=== PATIENT | female | born 1970 | race Caucasian/White ===

== ENCOUNTER → 2019-10-23 10:50 | Outpatient (CLI) | payer OTHER, SELFPAY ==
--- NOTE | ~2019-10-23 | MM_ITS ---
EXAMINATION: MM screening [facility] BI w duyen HISTORY: Screening mammogram TECHNIQUE: Craniocaudal and mediolateral oblique 3-D tomosynthesis images were obtained and synthetic 2-D images were generated. CAD analysis was submitted and interpreted. COMPARISON: 06/13/2018, 10/26/2016 BREAST PARENCHYMAL COMPOSITION: There are scattered areas of fibroglandular density. FINDINGS: There is no evidence of suspicious mass, calcification, or architectural distortion to sugg est malignancy in either breast. There has been no suspicious interval change. IMPRESSION: 1. No mammographic evidence of malignancy. 2. Recommend routine screening mammography in one year. BI-RADS Category 1: Negative Reviewed, dictated and finalized at location A. LATOR CONSTRUCTOR
== END ==
PROVIDERS: PCP Internal Medicine; Visit Provider Internal Medicine
DX: Z12.31 Encounter for screening mammogram for malignant neoplasm of breast (principal)
CPT/HCPCS: 77063; 77067

== ENCOUNTER 2020-10-01 01:52 | Outpatient (CLI) | payer OTHER, SELFPAY ==
[2020-10-01 18:12] LABS: SARS-CoV-2 RNA PCR Negative
== END 2020-10-01 01:53 | disposition home or self-care (01) ==
LOC: ANHCOVIDDT 01:52
PROVIDERS: PCP Internal Medicine; Visit Provider Internal Medicine Gastroenterology
DX: Z01.812 Encounter for preprocedural laboratory examination (principal); Z20.822 Contact with and (suspected) exposure to COVID-19
CPT/HCPCS: C9803; U0003; U0005

== ENCOUNTER 2020-10-04 01:04 | Day surgery (SDC) | payer OTHER, SELFPAY ==
[2020-09-20 14:28] VITALS: BMI 32.6
--- NOTE | 2020-10-02 13:31 | WPDANESEPPF ---
Anes - Initial Pre Proc Eval Procedure: Operation Date: 10/04/20 09:00 Proposed Procedures p Esophagogastroduodenoscopy - Reed Gregorio MD Date/Time: 10/02/20 13:31 Surgeon: Reed Gregorio MD Pre Op Diagnosis: Dysphagia Patient Data Age: 49 Gender: F Height: 1.65 m Weight: 89 kg Allergies Allergy/AdvReac Type Severity Reaction Status Date / Time No Known Allergies Allergy Mild Verified 10/04/20 08:01 NO KNOWN DRUG ALLERGIES Allergy Y Uncoded 02/27/03 15:34 (Class Allergy) Home Medications Medication Instructions Recorded Confirmed Type escitalopram oxalate 10 mg PO DAILY 09/20/20 09/20/20 History phentermine 37.5 mg PO DAILY 09/20/20 09/20/20 History rosuvastatin 40 mg PO DAILY 09/20/20 09/20/20 History Patient hx anesthesia problems: none Family hx anesthesia problems: none [facility] Past Medical History Medical History (Updated 10/04/20 @ 08:40 by Reed Gregorio MD) Depression Hyperlipidemia BRITTANI (obstructive sleep apnea) CPAP Social History Social History Years smoked: 30 Smoking status: Former smoker Tobacco type: cigarettes Alcohol intake: never Substance use: never Substance use type: does not use Living arrangements: with family Spiritual care concerns: No Anes - Eval Final PreProcedure Day of Procedure 10/02/20 13:31 Patient weight: obese Heart: regular rate and rhythm Lungs: clear to auscultation and normal air movement Airway: Mallampati scale class III Neurological: alert and oriented Last oral intake: >/= 8 hours ASA classification: III Emergent: no Anesthetic plan: proceed Anesthesia type and monitoring: general GIVS and standard monitoring Informed Consent: The patient's anesthetic plan and its attendant risks and benefits were discussed with the patient/family/POA. Questions were solicited and answers provided to the satisfaction of the patient/family/POA.
[2020-10-04 08:02] VITALS: BP 139/72; PULSE 64; RESP 16; TEMP 36.7; O2SAT 97
[2020-10-04] MEDS: LACTATED RINGERS 1,000 ML 150 ML IV CONT (08:17)
--- NOTE | 2020-10-04 08:38 | P.CONGI_ITS ---
Assessment and Plan Assessment and plan (1) Dysphagia: Code(s): R13.10 - Dysphagia, unspecified Status: Acute Assessment and Plan: Patient reports difficulty swallowing. Primarily solid foods and acidic food s. This will be evaluated by endoscopy. Patient may benefit from a trial of anti-reflux measures and proton pump inhibitor. This will be assessed at time of endoscopy. (2) Throat pain: Code(s): R07.0 - Pain in throat Status: Acute Assessment and Plan: Patient complains of burning throat discomfort on swallowing acidic and spicy foods. This is somewhat suspicious for acid reflux. Cannot exclude an infection or other etiology. Plan is for EGD to assess more thoroughly. GI Consult Note Consult date/time: 10/04/20 08:38 HPI: Laureen Simmons is a 49 year old female presents for evaluation of dysphagia. Patient reports over the last 2 years that she will have throat burning when eating spicy or acidic foods. She also feels tightness in slow passage to more solid foods through this area. She reports only infrequent acid regurgitation. Patient denies any bleeding or weight loss. She is referred today for EGD. Patient reports she has tried Tums and antacids with no improvement. She has tried no other medications. Her family history is noncontributory. Patient denies any weight loss. Review of Systems Review of Systems: All systems reviewed & are unremarkable except as noted in HPI and below PMFSH Past Medical History Medical History (Updated 10/04/20 @ 08:40 by Reed Gregorio MD) Depression Hyperlipidemia BRITTANI (obstructive sleep apnea) CPAP Social History Social History Years smoked: 30 Smoking status: Former smoker Tobacco type: cigarettes Alcohol intake: never Substance use: never Substance use type: does not use Living arrangements: with family Spiritual care concerns: No Meds Home Medications and Allergies Home Medications Medication Instructions Recorded Confirmed Type escitalopram oxalate 10 mg PO DAILY 09/20/20 09/20/20 History phentermine 37.5 mg PO DAILY 09/20/20 09/20/20 History rosuvastatin 40 mg PO DAILY 09/20/20 09/20/20 History Allergies Allergy/AdvReac Type Severity Reaction Status Date / Time No Known Allergies Allergy Mild Verified 10/04/20 08:01 NO KNOWN DRUG ALLERGIES Allergy Y Uncoded 02/27/03 15:34 (Class Allergy) Vital Signs Vital Signs - 24 hr 10/04/20 08:02 Temperature 98.0 F Pulse Rate 64 Respiratory Rate 16 Blood Pressure 139/72 Pulse Oximetry 97 Exam Narrative: Exam Narrative: Physical exam reveals patient to be alert. Vital signs stable. HEENT exam is unremarkable. Lungs are clear to auscultation and percussion. Heart is without murmur or extra sounds. Abdominal exam bowel sounds are present soft nontender with no hepatosplenomegaly. Rectal exam is deferred.
[2020-10-04] MEDS: BENZOCAINE (*SP) 60 ML SPRAY CAN (HURRICAINE) 1 SPRAY MUCOUS MEM (09:20)
[2020-10-04 09:30] VITALS: BP 122/73; PULSE 63; RESP 22; O2SAT 96
[2020-10-04 09:40] VITALS: BP 123/70; PULSE 62; RESP 17; O2SAT 97
[2020-10-04 09:50] VITALS: BP 131/71; PULSE 70; RESP 20; O2SAT 100
== END 2020-10-04 10:00 | disposition home or self-care (01) ==
PROVIDERS: PCP Internal Medicine; Visit Provider Internal Medicine Gastroenterology
PROC: 0DJ08ZZ Inspection of Upper Intestinal Tract, Via Natural or Artificial Opening Endoscopic (ICD-10-PCS; CPT 43235; principal; 2020-10-04 09:00)
DX: R13.10 Dysphagia, unspecified (principal); G47.33 Obstructive sleep apnea (adult) (pediatric); F32.9 Major depressive disorder, single episode, unspecified; E78.5 Hyperlipidemia, unspecified; E66.9 Obesity, unspecified; Z68.33 Body mass index [BMI] 33.0-33.9, adult; R07.0 Pain in throat
CPT/HCPCS: 43450; C9803; J2704; J7120; U0003; U0005

== ENCOUNTER → 2021-04-10 15:59 | Outpatient (CLI) | payer OTHER, SELFPAY ==
--- NOTE | ~2021-04-10 | MM_ITS ---
EXAMINATION: MM screening [facility] BI w duyen HISTORY: Screening TECHNIQUE: Craniocaudal and mediolateral oblique 3-D tomosynthesis images were obtained and synthetic 2-D images were generated. CAD analysis was submitted and interpreted. COMPARISON: Comparison to multiple prior studies sequentially, with oldest reviewed study dated 10/26. BREAST PARENCHYMAL COMPOSITION: There are scattered areas of fibroglandular density. FINDINGS: There are stable scattered benign-appearing breast calcifications. There is no evidence of suspicious mass, calcification, or architectural distortion to suggest malignancy in either breast. T here has been no suspicious interval change. IMPRESSION: 1. No mammographic evidence of malignancy. 2. Recommend routine screening mammography in one year. BI-RADS Category 1: Negative Reviewed, dictated and finalized at location A.
== END ==
PROVIDERS: PCP Internal Medicine; Visit Provider Internal Medicine
DX: Z12.31 Encounter for screening mammogram for malignant neoplasm of breast (principal)
CPT/HCPCS: 77063; 77067

== ENCOUNTER 2021-09-02 07:36 | Outpatient (CLI) | payer OTHER, SELFPAY ==
--- NOTE | 2021-09-10 18:08 | WPDHOMESLEEP ---
Sleep Study - Home Unattended Date of Study: 09/02/21 Ordering Provider: Pau Simental, Interpreting Provider: Trupti Shah MD Home Sleep Study Type: Apnea Link Air Height: 1.65 m Weight: 95.254 kg Body Mass Index: 34.9 Neck Circumference (inches): 16 [place]: 11 Reason for Sleep Study Loud snoring, falling asleep in the day Sleep History Laureen Simmons is a 50-year-old female with loud snoring and poor quality sleep. She was diagnosed with sleep apnea. She has morning headaches. She has difficulty staying asleep throughout the night and she wakes throughout the night. She frequently awakens from sleep feeling short of breath and awakens at night with heartburn, belching or coughing. She constantly snores loudly. She frequently has trouble sleeping with a cold. She frequently wakes up gasping for breath at night. She occasionally has breathing problems at night observed by others. She does not sweat excessively at night. She rarely notices her heart pounding or beating irregularly at night. She frequently falls asleep during the day frequently falls asleep involuntarily. she does not fall asleep while driving. She does not have loss of muscle tone with strong emotion. She occasionally has daytime difficulties due to excessive sleepiness. She does not feel paralyzed on waking or falling asleep. She frequently has vivid dreamlike scenes upon awakening or falling asleep and frequently feels afraid to go to sleep. She does not have nightmares. She occasionally remembers her dreams. She rarely has racing thoughts. She frequently feels sad or depressed. She occasionally feels anxious. She occasionally has muscular tension. She rarely notices parts of her body jerking and she rarely kicks at night. She really has crawling and aching feelings in her legs and rarely has any kind of leg pain at night. She does not have morning jaw pain. She rarely grinds her teeth during sleep. She really is bothered by pain during the day and rarely awakened by pain at night. She frequently wakes up feeling stiff in the morning occasionally wakes up with sore achy muscles and frequently wakes up with pain in the neck and spine. She has palpitations, fatigue, memory problems and concentration difficulties. Normal bedtime is Twelve midnight falling asleep quickly waking up several times at night. During this time she will drink water, relax and try to get back to sleep. She wakes the morning at 7:30 a.m.. Her weekend schedule is similar. She estimates getting 4-5 hours of sleep at night. She does not take naps. A short nap is not refreshing. She is drowsy for an hour after waking. She feels better in the afternoon compared to the morning. Habits: Quit tobacco 6 years ago. Caffeine 2 cups of coffee a day. No alcohol or recreational drugs. [facility] Past Medical History Medical History (Updated 09/10/21 @ 18:56 by Trupti Shah MD) Depression Hyperlipidemia Obstructive sleep apnea Social History Social History Years smoked: 30 Smoking status: Former smoker Tobacco type: cigarettes Alcohol intake: never Substance use: never Substance use type: does not use Spiritual care concerns: No Medications Home Medications Medication Instructions Recorded Confirmed Type escitalopram oxalate 10 mg PO DAILY 09/20/20 09/20/20 History phentermine 37.5 mg PO DAILY 09/20/20 09/20/20 History rosuvastatin 40 mg PO DAILY 09/20/20 09/20/20 History Sleep Procedure This test was performed using 4 channel monitoring including respiratory effort channel, snoring channel, heart rate channel, and oxygen saturation channel. This study was scored using CMS guidelines. Sleep Architecture Not applicable for home sleep test. Respiratory Analysis The recording duration is 8 hours 19 minutes. Monitoring duration is 8 hours and 7 minutes. Oxygen saturation evaluation 8 hours 9 minutes. The apnea-hypopnea index is 31.1.
[2021-09-10 19:09] VITALS: BMI 34.9
== END 2021-09-03 12:11 | disposition home or self-care (01) ==
LOC: ANHCSM 07:37
PROVIDERS: PCP Internal Medicine; Visit Provider Internal Medicine Endocrinology, Diabetes & Metabolism
DX: G47.33 Obstructive sleep apnea (adult) (pediatric) (principal); Z68.34 Body mass index [BMI] 34.0-34.9, adult
CPT/HCPCS: 95806

== ENCOUNTER → 2021-09-13 10:29 | Outpatient (CLI) | payer OTHER, SELFPAY ==
[2021-09-13 22:40] LABS: SARS-CoV-2 RNA PCR Negative
== END ==
PROVIDERS: PCP Internal Medicine; Visit Provider Internal Medicine
DX: R68.89 Other general symptoms and signs (principal); Z20.822 Contact with and (suspected) exposure to COVID-19
CPT/HCPCS: C9803; U0003; U0005

== ENCOUNTER 2021-11-04 13:50 | Outpatient (CLI) | payer OTHER, SELFPAY ==
--- NOTE | ~2021-11-04 | US_ITS ---
EXAMINATION: US thyroid EXAM DATE: 11/04/2021 14:26 INDICATION: Nontoxic Goiter TECHNIQUE: Multiple grayscale and Doppler images of the thyroid were obtained (by a technologist who performed the scan) and subsequently reviewed. Individual nodules and recommendations may be reporte d in accordance with TI-RADS system as designated by the 2017 ACR White Paper TI-RADS committee. The re is no prior study for comparison. FINDINGS: The right thyroid lobe measures 3.7 x 1.5 x 1.3 cm, the left measuring 3.9 x 1.6 x 1.7 cm. Relatively homogeneous thyroid echogenicity, and dimensions are within normal size limits. There is a right thyroid lobe nodule measuring 1.0 x 0.5 x 1.0 cm, solid (2 points), hypoechoic (2 po ints), wider than tall, smooth well defined margin, without echogenic foci, category TR4 for this nod ule. There is a smaller left thyroid lobe TR 4 nodule up to 7 mm, not likely clinically significant. IMPRESSION: Right and left thyroid lobe nodules; one-year follow-up can be obtained. Reviewed, dictated and finalized at location B. MENT ANALYST IMPRESSION: Right and left thyroid lobe nodules; one-year follow-up can be obta ined.
== END 2021-11-04 13:51 | disposition home or self-care (01) ==
PROVIDERS: PCP Internal Medicine; Visit Provider Internal Medicine Endocrinology, Diabetes & Metabolism
DX: E04.9 Nontoxic goiter, unspecified (principal); E04.2 Nontoxic multinodular goiter
CPT/HCPCS: 76536

== ENCOUNTER → 2022-01-09 13:25 | Outpatient (CLI) | payer OTHER, SELFPAY ==
--- NOTE | ~2022-01-09 | DEXA_ITS ---
Bone Density Report Name: KELVIN JACKSON Age: 51 Sex: Female Ethnicity: White Date of : 1970 Indication: postmenopausal; screening for osteoporosis; Referring Provider: Jillian, Deborah Study: Bone densitometry was performed. Exam Date: January 09, 2022 Accession number: [id number] Bone Density: Region BMD T-score Z-score Classification AP Spine (L1-L4) 1.012 -0.3 0.6 Normal Femoral Neck (Left) 0.708 -1.3 -0.4 Osteopenia Total Hip (Left) 0.955 0.1 0.7 Normal Femoral Neck (Right) 0.770 -0.7 0.2 Normal Total Hip (Right) 0.902 -0.3 0.2 Normal Total Hip Mean 0.929 -0.1 0.5 Normal World Health Organization criteria for BMD impression classify patients as: Normal (T-score at or above -1.0), Osteopenia (T-score between -1.0 and -2.5), or Osteoporosis (T-score at or below -2.5). 10-year Fracture Risk(1): Major Osteoporotic Fracture 4.8% Hip Fracture 0.3% Reported Risk Factors: [place] (), Neck BMD=0.708, BMI=33.9 (1) FRAX(R) Version 3.08. Fracture probability calculated for an untreated patient. Fracture probability may be lower if the patient has received treatment. Clinical Information Provided by Patient: Has used the following medications: Vitamin D, Calcium Patient maximum height was 64.4 Menopause Age: 41 Drinks caffeinated beverages Onset of menses at age 14 Number of children 2 Impression: The patient has low bone mass, based on the Left Femoral Neck T-score. The patient has an estimated ten-year risk of hip fracture of 0.3% and an estimated ten-year risk of major fracture of 4.8%, based on the WHO FRAX algorithm. Discussion: BONE DENSITY IS LOW AT ONE OR MORE SKELETAL SITES. This patient's lowest T-score is low at one or more skeletal sites. It meets the World Health Organization's (WHO) criteria for ?low bone mass? (T-score between -1.0 and -2.5). The patient's 10-year risk of fracture as calculated by FRAX is less than the threshold where pharmacological therapy is recommended by the National Osteoporosis Foundation (NOF). However, all treatment decisions require clinical judgment and consideration of individual patient factors, including patient preferences, comorbidities, previous drug use, risk factors not captured in the FRAX model (e.g., frailty, falls, vitamin D deficiency, increased bone turnover, interval significant decline in bone density) and possible under or overestimation of fracture risk by FRAX. The patient should follow a healthful lifestyle (good nutrition with adequate calcium and vitamin D, and appropriate weight-bearing exercise). Follow-Up: Consider repeating this study in 2 to 3 years to reassess this patient's status, or sooner if there is some new clinical indication. Reported by: CULLEN on 01/09/2022 1:53:00 PM.
== END ==
PROVIDERS: PCP Internal Medicine; Visit Provider Internal Medicine
DX: Z13.820 Encounter for screening for osteoporosis (principal); Z78.0 Asymptomatic menopausal state; M85.88 Other specified disorders of bone density and structure, other site
CPT/HCPCS: 77080

== ENCOUNTER 2022-05-22 14:03 | Outpatient (CLI) | payer OTHER, SELFPAY ==
--- NOTE | ~2022-05-22 | CT_ITS ---
EXAMINATION: CT abdomen pelvis w con DATE: 05/22/2022 14:57 INDICATION: Pelvic pain. TECHNIQUE: Computed tomography (CT) of the abdomen and pelvis was performed with 100 mL Omnipaque 350 intravenous contrast. Automated exposure control and iterative reconstruction technique were employe d. The dose-length product was 454.96 mGy-cm. COMPARISON: None. FINDINGS: The visualized portions of the lung bases are clear without pneumonia or pleural effusion. The heart size is normal. No pericardial effusion. The liver, gallbladder, spleen, pancreas, adrenal glands, and kidneys are normal. There is diverticulosis of the colon without evidence of diverticulit is. There are no dilated loops of bowel. The appendix is normal. There is an umbilical hernia contain ing fat. There are no pathologically enlarged lymph nodes. There is no free intraperitoneal fluid. Th ere are chronic bilateral L5 pars defects. There is mild thoracolumbar spondylosis. IMPRESSION: 1. Umbilical hernia containing fat. Reviewed, dictated and finalized at location A.
== END 2022-05-22 14:04 | disposition home or self-care (01) ==
PROVIDERS: PCP Internal Medicine; Visit Provider Nurse Practitioner Family
DX: R10.2 Pelvic and perineal pain (principal); K42.9 Umbilical hernia without obstruction or gangrene
CPT/HCPCS: 74177; Q9967

== ENCOUNTER 2022-06-25 02:27 | Day surgery (SDC) | payer OTHER, SELFPAY ==
[2022-06-22 11:43] VITALS: BMI 29.0
[2022-06-25 06:54] VITALS: BP 129/76; PULSE 77; RESP 20; TEMP 36.3; O2SAT 100; BMI 28.5
[2022-06-25] MEDS: LACTATED RINGERS 1,000 ML 150 ML IV CONT (07:04)
--- NOTE | 2022-06-25 08:00 | PM.HPGS ---
History of Present Illness History of Present Illness Consent: Risks, benefits, and alternatives have been discussed and questions answered. Patient agrees to proceed with procedure. Chief complaint: RLQ pain; Change in bowel habits Narrative: Laureen Simmons is a 51 year old female Presents for colonoscopy. Patient complains of ongoing right lower quadrant discomfort. Symptoms fluctuate. She also reports tendency towards constipation. She denies any bleeding. She has had no weight loss. She states previous laparoscopic surgery is indicated that she has multiple adhesions. Patient presents today for colonoscopy to exclude organic disease in the colon. Family history noncontributory. Review of Systems Review of Systems: Review of systems is noncontributory. [facility] Past Medical History Medical History (Updated 06/25/22 @ 08:01 by Reed Gregorio MD) Constipation Depression Hyperlipidemia Obesity (BMI 30.0-34.9) Obstructive sleep apnea Social History Social History Years smoked: 25 Smoking status: Former smoker Tobacco type: cigarettes Alcohol intake: current Substance use: never Substance use type: does not use Living arrangements: with family Spiritual care concerns: No Meds Home Medications and Allergies Home Medications Medication Instructions Recorded Confirmed Type escitalopram oxalate 10 mg tablet 10 mg PO DAILY 09/20/20 06/22/22 History cyanocobalamin (vitamin B-12) 1,000 mcg subcut MONTHLY 06/15/22 06/22/22 History 1,000 mcg/mL injection solution evolocumab 140 mg/mL subcutaneous 140 mg subcut [id number] 06/15/22 06/22/22 History pen injector (Carla Amaral) metformin 500 mg tablet 500 mg PO DAILY 06/15/22 06/22/22 History sodium,potassium,mag sulfates 17.5 See Rx Instructions PO .COMPLEX 06/19/22 06/25/22 Rx gram-3.13 gram-1.6 gram oral soln #354 mL (Suprep Bowel Prep Kit) Biocel Salts 1 dose PO DAILY 06/22/22 06/22/22 History Spectra-Lite 1 dose PO DAILY 06/22/22 06/22/22 History berberine-herbal comb no.18 capsule 1 cap PO BIDWMEAL 06/22/22 06/22/22 History magnesium carb,citrate,oxide 300 mg PO BIDWM 06/22/22 06/22/22 History (Magnesium Complex) Allergies Allergy/AdvReac Type Severity Reaction Status Date / Time No Known Allergies Allergy Mild Verified 06/25/22 06:53 Vital Signs Vital Signs - 24 hr 06/25/22 06:54 Temperature 97.4 F L Pulse Rate 77 Respiratory Rate 20 Blood Pressure 129/76 Pulse Oximetry 100 Oxygen Delivery Room Air Exam Narrative: Physical exam reveals patient to be alert. Vital signs stable. HEENT exam is unremarkable. Patient is anicteric. Lungs are clear to auscultation and percussion. Heart is without murmur or extra sounds. Abdomen bowel sounds are present soft nontender with no organomegaly. Digital external rectal exam is normal. Assessment and Plan Assessment and plan (1) Constipation: Code(s): K59.00 - Constipation, unspecified Status: Acute Assessment and Plan: Patient complains of ongoing constipation. Likely related to adhesions. Plan for stool softener such as Metamucil or Colace daily. Supplement this with MiraLax as needed for bowel habit control. Colonoscopy will be performed. Further recommendations will be given after endoscopy. (2) RLQ abdominal pain: Code(s): R10.31 - Right lower quadrant pain Status: Acute Assessment and Plan: Patient with right lower quadrant discomfort. Associated with bowel movements. Etiology unclear. This will be assessed at time of endoscopy as well. Likely related to her adhesions.
--- NOTE | 2022-06-25 08:09 | P.PNAN_ITS ---
Anes - Initial Pre Proc Eval Procedure: Operation Date: 06/25/22 08:00 Proposed Procedures p Colonoscopy - Reed Gregorio MD Date/Time: 06/25/22 08:09 Surgeon: Reed Gregorio MD Pre Op Diagnosis: RLQ pain; Change in bowel habits Patient Data Age: 51 Gender: F Height: 1.65 m Weight: 77.9 kg Last Vital Signs Temp 97.4 F L 06/25/22 06:54 Pulse 77 06/25/22 06:54 Resp 20 06/25/22 06:54 BP 129/76 06/25/22 06:54 Pulse Ox 100 06/25/22 06:54 O2 Del Method Room Air 06/25/22 06:54 Allergies Allergy/AdvReac Type Severity Reaction Status Date / Time No Known Allergies Allergy Mild Verified 06/25/22 06:53 Home Medications Medication Instructions Recorded Confirmed Type escitalopram oxalate 10 mg tablet 10 mg PO DAILY 09/20/20 06/22/22 History cyanocobalamin (vitamin B-12) 1,000 mcg subcut MONTHLY 06/15/22 06/22/22 History 1,000 mcg/mL injection solution evolocumab 140 mg/mL subcutaneous 140 mg subcut [id number] 06/15/22 06/22/22 History pen injector (Repatha SureClick) metformin 500 mg tablet 500 mg PO DAILY 06/15/22 06/22/22 History sodium,potassium,mag sulfates 17.5 See Rx Instructions PO .COMPLEX 06/19/22 06/25/22 Rx gram-3.13 gram-1.6 gram oral soln #354 mL (Suprep Bowel Prep Kit) Biocel Salts 1 dose PO DAILY 06/22/22 06/22/22 History Spectra-Lite 1 dose PO DAILY 06/22/22 06/22/22 History berberine-herbal comb no.18 capsule 1 cap PO BIDWMEAL 06/22/22 06/22/22 History magnesium carb,citrate,oxide 300 mg PO BIDWM 06/22/22 06/22/22 History (Magnesium Complex) Patient hx anesthesia problems: none Family hx anesthesia problems: none Results Review: All pre-operative results and documents have been reviewed as part of the pre- operative evaluation. [facility] Past Medical History Medical History (Updated 06/25/22 @ 08:01 by Reed Gregorio MD) Constipation Depression Hyperlipidemia Obesity (BMI 30.0-34.9) Obstructive sleep apnea Social History Social History Years smoked: 25 Smoking status: Former smoker Tobacco type: cigarettes Alcohol intake: current Substance use: never Substance use type: does not use Living arrangements: with family Spiritual care concerns: No Anes - Eval Final PreProcedure Day of Procedure 06/25/22 08:09 Patient weight: overweight Heart: regular rate and rhythm Lungs: clear to auscultation Airway: Mallampati scale class II Neurological: alert and oriented Last oral intake: >/= 8 hours ASA classification: III Emergent: no Anesthetic plan: proceed Anesthesia type and monitoring: general GIVS and standard monitoring Results Review: All pre-operative results and documents have been reviewed as part of the pre- operative evaluation. Informed Consent: The patient's anesthetic plan and its attendant risks and benefits were discussed with the patient/family/POA. Questions were solicited and answers provided to the satisfaction of the patient/family/POA.
[2022-06-25 08:31] VITALS: BP 98/63; PULSE 55; RESP 17; O2SAT 96
[2022-06-25 08:41] VITALS: BP 104/71; PULSE 50; RESP 17; O2SAT 98
[2022-06-25 08:51] VITALS: BP 118/74; PULSE 45; RESP 17; O2SAT 98
== END 2022-06-25 09:02 | disposition home or self-care (01) ==
PROVIDERS: PCP Internal Medicine; Visit Provider Internal Medicine Gastroenterology
PROC: 0DJD8ZZ Inspection of Lower Intestinal Tract, Via Natural or Artificial Opening Endoscopic (ICD-10-PCS; CPT 45378; principal; 2022-06-25 08:00)
DX: K59.00 Constipation, unspecified (principal); R10.31 Right lower quadrant pain; K64.8 Other hemorrhoids; E78.5 Hyperlipidemia, unspecified; G47.33 Obstructive sleep apnea (adult) (pediatric); F32.A Depression, unspecified; Z87.891 Personal history of nicotine dependence; Z79.84 Long term (current) use of oral hypoglycemic drugs
CPT/HCPCS: 45378; J2704; J7120

== ENCOUNTER → 2022-08-07 14:08 | Outpatient (CLI) | payer OTHER, SELFPAY ==
--- NOTE | ~2022-08-07 | MM_ITS ---
EXAMINATION: MM screening [facility] BI w duyen HISTORY: Screening mammogram TECHNIQUE: Craniocaudal and mediolateral oblique 3-D tomosynthesis images were obtained and synthetic 2-D images were generated. CAD analysis was submitted and interpreted. COMPARISON: 04/10/2021, 10/23/2019, 06/13/2018 bilateral screening mammogram examinations BREAST PARENCHYMAL COMPOSITION: There are scattered areas of fibroglandular density. FINDINGS: There are scattered bilateral benign punctate microcalcifications. There is 1 cluster of in determinate grouped microcalcifications in the central right breast approximately 4 cm deep to the ni pple on MLO view. Diagnostic right mammogram with magnification views is recommended, with ultrasound if required. Otherwise there is no evidence of suspicious mass, calcification, or architectural distortion to sugg est malignancy in either breast. There has been no other suspicious interval change. IMPRESSION: 1. Subtle indeterminate grouped microcalcifications in central right breast approximately 4 cm deep t o the nipple 2. Diagnostic right mammogram with magnification views is recommended, with ultrasound if required BI-RADS Category 0: Incomplete: Needs additional imaging evaluation. Reviewed, dictated and finalized at location A. CHASER IMPRESSION: 1. Subtle indeterminate grouped microcalcifications in central right breast yahri roximately 4 cm deep to the nipple 2. Diagnostic right mammogram with magnification views is recommended, with ult rasound if required BI-RADS Category 0: Incomplete: Needs additional imaging evaluation.
== END ==
PROVIDERS: PCP Internal Medicine; Visit Provider Nurse Practitioner Family
DX: Z12.31 Encounter for screening mammogram for malignant neoplasm of breast (principal); R92.8 Other abnormal and inconclusive findings on diagnostic imaging of breast
CPT/HCPCS: 77063; 77067

== ENCOUNTER → 2022-10-13 08:57 | Outpatient (CLI) | payer OTHER, SELFPAY ==
--- NOTE | ~2022-10-13 | MM_ITS ---
EXAMINATION: MM diagnostic mammo unilat RT HISTORY: Subtle indeterminate grouped microcalcifications in central right breast approximately 4 cm deep to the nipple TECHNIQUE: ML view of right breast. ML, MLO and CC spot magnification views.. CAD analysis was submit blayne and interpreted. COMPARISON: 08/07/2022 bilateral screening mammogram FINDINGS: There are scattered benign solitary grouped microcalcifications. No suspicious calcificatio ns are identified. IMPRESSION: 1. Benign findings 2. Routine annual mammographic screening is recommended BI-RADS Category 2: Benign finding(s). Reviewed, dictated and finalized at location A. [employer]
== END ==
PROVIDERS: PCP Internal Medicine; Visit Provider Nurse Practitioner Family
DX: R92.8 Other abnormal and inconclusive findings on diagnostic imaging of breast (principal)
CPT/HCPCS: 77065

== ENCOUNTER 2024-05-19 14:17 | Outpatient (CLI) | payer OTHER, SELFPAY ==
--- NOTE | ~2024-05-19 | MM_ITS ---
EXAMINATION: MM screening adia BI w duyen HISTORY: Screening mammogram, family history of breast cancer in her mother. TECHNIQUE: Craniocaudal and mediolateral oblique 3-D tomosynthesis images were obtained and synthetic 2-D images were generated. CAD analysis was submitted and interpreted. COMPARISON: 08/07/2022, 04/10/2021, 10/23/2019, 06/13/2018 BREAST PARENCHYMAL COMPOSITION:Not Dense. There are scattered areas of fibroglandular density. FINDINGS: There is developing low-density mass at the upper, outer left breast posteriorly. No suspic ious mass, calcification, or architectural distortion are identified in the right breast. IMPRESSION: Developing upper, outer left breast mass, as above. Spot compression views and ultrasound are recomme nded for further evaluation. BI-RADS Category 0: Incomplete: Needs additional imaging evaluation. Reviewed, dictated and finalized at [facility]. IMPRESSION: Developing upper, outer left breast mass, as above. Spot compression views and ultrasound are recommended for further evaluation. BI-RADS Category 0: Incomplete: Needs additional imaging evaluation.
== END 2024-05-19 14:18 | disposition home or self-care (01) ==
LOC: MICIMG 14:19
PROVIDERS: PCP Internal Medicine; Visit Provider Internal Medicine
DX: Z12.31 Encounter for screening mammogram for malignant neoplasm of breast (principal); R92.8 Other abnormal and inconclusive findings on diagnostic imaging of breast
CPT/HCPCS: 77063; 77067

== ENCOUNTER 2024-07-05 09:24 | Outpatient (CLI) | payer OTHER, SELFPAY ==
--- NOTE | ~2024-07-05 | MM_ITS ---
EXAMINATION: MM diagnostic adia LT w duyen HISTORY: Possible left breast mass TECHNIQUE: Additional 3-D tomosynthesis images of the left breast were performed and synthetic 2-D im ages were generated. CAD analysis was submitted and interpreted. COMPARISON: 05/19/2024, 08/07/2022 BREAST PARENCHYMAL COMPOSITION:Not Dense. There are scattered areas of fibroglandular density. FINDINGS: The density in the upper, outer left breast effaces with spot compression. No persistent ma ss lesion or distortion seen. No suspicious microcalcification. IMPRESSION: No mammographic evidence for malignancy. BI-RADS Category 1: Negative Reviewed, dictated and finalized at location .
== END 2024-07-05 09:25 | disposition home or self-care (01) ==
LOC: MICIMG 09:24
PROVIDERS: PCP Obstetrics & Gynecology Gynecology; Visit Provider Internal Medicine
DX: N63.21 Unspecified lump in the left breast, upper outer quadrant (principal); N63.20 Unspecified lump in the left breast, unspecified quadrant
CPT/HCPCS: 77061; 77065; G0279

== ENCOUNTER 2024-07-07 10:52 | Emergency (ER) | payer OTHER, SELFPAY ==
[2024-07-07] VITALS (14 sets, daily range): BP systolic 135–158; BP diastolic 75–92; PULSE 46–65; RESP 10–27; TEMP 36.6; O2SAT 96–100
--- NOTE | ~2024-07-07 | XR_ITS ---
EXAMINATION: XR chest 2V DATE: 07/07/2024 12:16 INDICATION: Chest pain. TECHNIQUE: Frontal and lateral views of the chest were obtained. COMPARISON: CT abdomen and pelvis 05/22/2022 FINDINGS: There is no pneumonia, pleural effusion, or pneumothorax. The heart size is normal. IMPRESSION: 1. No acute cardiopulmonary disease. Reviewed, dictated and finalized at location B.
--- NOTE | 2024-07-07 10:53 | ECG_ITS ---
Test Date: 2024-07-07 10:58:33 Measurements Intervals [place] Rate: 55 P: 33 VT: 183 QRS: -5 QRSD: 117 T: 77 QT: 408 QTc: 393 Interpretive Statements SINUS BRADYCARDIA INCOMPLETE LEFT BUNDLE BRANCH BLOCK ANTEROSEPTAL INFARCT, AGE INDETERMINATE CONSIDER INFERIOR INFARCT, AGE INDETERMINATE ABNORMAL ECG No previous ECG available for comparison Electronically Signed On 07-07-2024 11:05:24 CDT by Edward Sahu D.O.
[2024-07-07 11:10] LABS: Basophils Percent Auto 0.5 % (0.2-1.2); Eosinophils Absolute Auto 0.6 K/mm3 (0-0.3); Eosinophils Percent Auto 9.7 % (0-4.4); Hematocrit 41.5 % (37.0-47.0); Hemoglobin 13.6 g/dL (12.0-15.0); Immature Granulocyte Absolute 0.01 K/mm3 (0.00-0.031); Immature Granulocyte Percent A 0.2 % (0-0.5); Lymphocytes Absolute Auto 2.28 K/mm3 (0.9-3.2); Lymphocytes Percent Auto 40.4 % (18.3-44.2); Mean Corpuscular HGB Conc 32.8 g/dl (32-36); Mean Corpuscular Hemoglobin 30.2 pg (26-34); Mean Platelet Volume 8.7 fl (7.4-10.4); Monocytes Absolute Auto 0.4 K/mm3 (0.1-0.6); Monocytes Percent Auto 7.1 % (2.6-8.5); Neutrophils Absolute Auto 2.4 K/mm3 (1.3-6.7); Neutrophils Percent Auto 42.1 % (45.5-73.1); Platelet Count Result 331 k/mm3 (150-375); Red Blood Count 4.51 M/mm3 (4.2-5.4); Red Cell Distribution Width 11.9 % (11.5-14.5); White Blood Count 5.7 K/mm3 (4.5-10.0)
[2024-07-07 11:20] LABS: INR 0.9; Prothrombin Time 12.5 Seconds (11.1-14.7)
[2024-07-07 11:21] LABS: Alanine Aminotransferase 29 U/L (6-35); Albumin Level 4.7 g/dL (3.5-5.1); Alkaline Phosphatase 70 U/L (38-126); Anion Gap 8 mmol/L (4-12); Aspartate Amino Transferase 29 U/L (14-36); Bilirubin,Total 0.6 mg/dL (0.2-1.3); Blood Urea Nitrogen 13 mg/dL (7-17); Calcium 9.5 mg/dL (8.4-10.2); Carbon Dioxide 29 mmol/L (22-30); Chloride 105 mmol/L (98-107); Estimated CRCL calculation 83 ml/min; Estimated Glomerular Filt Rate > 60; Glucose 100 mg/dL (65-110); Lipase 65 U/L (23-300); Partial Thromboplastin Time 26.1 Seconds (22.3-36.8); Potassium 4.2 mmol/L (3.4-5.0); Sodium 142 mmol/L (137-145)
[2024-07-07 11:31] LABS: Troponin I < 0.012 ng/mL (0.000-0.034)
--- NOTE | 2024-07-07 12:16 | ED.CHESTPAIN ---
HPI - Chest Pain General Chief Complaint: Chest Pain <Malika Lucero PA-C - Last Filed: 07/07/24 16:06> Stated Complaint: CP <Malika Lucero PA-C - Last Filed: 07/07/24 16:06> Time Seen by Provider: 07/07/24 12:16 <Malika Lucero PA-C - Last Filed: 07/07/24 16:06> Focused HPI: This is a 53 year old female that presents to the ER for tightness on the left side of her chest. Ongoing over the last couple of days. Reports it is burning in nature as well. She tried taking baby aspirin with little relief. Denies fever, cough, shortness of breath, lower extremity edema. GENERAL: Well-appearing, well-nourished, and in no acute distress. HEAD: Normocephalic, atraumatic. CHEST: Clear to auscultation. ?No respiratory distress. HEART: Regular rate and rhythm.? NEURO: ?Alert and oriented x3. Patient screened in triage and initial orders placed.? ?Additional care and disposition to be based upon?diagnostic testing and treatment. <Malika Lucero PA-C - Last Filed: 07/07/24 16:06> Source: patient and family ( Mother) <Selena Flowers MD - Last Filed: 07/08/24 06:41> Mode of arrival: ambulatory <Selena Flowers MD - Last Filed: 07/08/24 06:41> Limitations: no limitations <Selena Flowers MD - Last Filed: 07/08/24 06:41> History of Present Illness HPI narrative: Concur with the above with the following additions/corrections: patient has had chest pain approximately 1 week. No associated nausea, vomiting, fever,, hemoptysis, shortness of breath, or diaphoresis. An antacid did not help. She describes it as a tightness that occurs under and around her left breast. She did recently undergo a mammogram few days ago notably her symptoms had started before that. She described it as a burning but with tightness rated 3 out 10 in severity and has been constant over the last few days. She also notes that she gets overheated at outside and did with exercise. 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 Denies any nipple discharge. States has never happened before and denies any underlying cardiac respiratory issues. Denies leg swelling. Has appointment to see her hat marker Dr. Adkins on August 07, 2024. She last saw in 2018 an echo performed. patient states she has a murmur. Patient denies a history of diabetes mellitus. Metformin was listed on her medication list however she states that she took that years ago but was able to get her numbers under control and this was discontinued. denies a history of hypertension. She does hyperlipidemia for which she is on Repathin which is an injection she takes every 2 weeks. She quit smoking 9 years ago. no family history of myocardial infarction before the age of 65 in first-degree relative although her mother does have a cardiac stent. Personal history of myocardial infarction, TIA, or CVA. <Selena Flowers MD - Last Filed: 07/08/24 06:41> Related Data Home Medications: Home Medications Medication Instructions Recorded Confirmed escitalopram oxalate 10 mg tablet 10 mg PO DAILY 09/20/20 06/22/22 cyanocobalamin (vitamin B-12) 1,000 mcg subcut MONTHLY 06/15/22 06/22/22 1,000 mcg/mL injection solution evolocumab 140 mg/mL subcutaneous 140 mg subcut [id number] 06/15/22 06/22/22 pen injector (Repatha SureClick) metformin 500 mg tablet 500 mg PO DAILY 06/15/22 06/22/22 Biocel Salts 1 dose PO DAILY 06/22/22 06/22/22 Spectra-Lite 1 dose PO DAILY 06/22/22 06/22/22 berberine-herbal comb no.18 capsule 1 cap PO BIDWMEAL 06/22/22 06/22/22 magnesium carb,citrate,oxide 300 mg PO BIDWM 06/22/22 06/22/22 (Magnesium Complex) <Malika Lucero PA-C - Last Filed: 07/07/24 16:06> Allergies/Adverse Reactions: Allergies Allergy/AdvReac Type Severity Reaction Status Date / Time No Known Allergies Allergy Mild Verified 07/07/24 12:27 <Malika Lucero PA-C - Last Filed: 07/07/24 16:06> Review of Systems Review of Systems: All systems reviewed & are unremarkable except as noted in HPI and below <Malika Lucero PA-C - Last Filed: 07/07/24 16:06> PMFSH Past Medical History Medical History: Medical History (Updated 07/08/24 @ 06:39 by Selena Flowers MD) Constipation Depression Hyperlipidemia Obstructive sleep apnea Screening mammogram for breast cancer 07/05/24 <Malika Lucero PA-C - Last Filed: 07/07/24 16:06> Family History Family History: Family History Mother History of heart artery stent <Malika Lucero PA-C - Last Filed: 07/07/24 16:06> Social History Social History: Social History Years smoked: 25 Smoking status: Former smoker Tobacco type: cigarettes Alcohol intake: current Substance use: never Substance use type: does not use Living arrangements: with family Occupation/Education: occupation 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 HEAD: Normocephalic, atraumatic. EYES: Non injected, non icteric ENT: Nares clear, no rhinorrhea or epistaxis. NECK: Supple. CHEST: Speaking in full sentences. No respiratory distress. lungs clear to auscultation bilaterally. HEART: Regular rate and rhythm. Patient states she has a murmur but unable to detect 1 on my bedside exam in the emergency department. ABDOMEN: Soft, nondistended. EXTREMITIES: Normal range of motion. No bilateral lower extremity edema. SKIN: Warm, dry, no rash, Particularly around and under patient's left breast. NEURO: No focal deficits. Alert and oriented x3. PSYCH: Normal mood and affect. <Selena Flowers MD - Last Filed: 07/08/24 06:41> Course Vital Signs Vital signs: Vital Signs Temperature 97.8 F 07/07/24 10:54 Pulse Rate 65 07/07/24 10:54 Respiratory Rate 18 07/07/24 10:54 Blood Pressure 158/92 H 07/07/24 10:54 Pulse Oximetry 100 07/07/24 10:54 Temperature 97.8 F 07/07/24 10:54 Pulse Rate 53 L 07/07/24 15:47 Respiratory Rate 13 07/07/24 15:47 Blood Pressure 143/79 H 07/07/24 15:47 Pulse Oximetry 99 07/07/24 15:47 Oxygen Delivery Room Air 07/07/24 14:00 <Malika Lucero PA-C - Last Filed: 07/07/24 16:06> Vital Signs Temperature 97.8 F 07/07/24 10:54 Pulse Rate 65 07/07/24 10:54 Respiratory Rate 18 07/07/24 10:54 Blood Pressure 158/92 H 07/07/24 10:54 Pulse Oximetry 100 07/07/24 10:54 Temperature 97.8 F 07/07/24 10:54 Pulse Rate 53 L 07/07/24 15:47 Respiratory Rate 13 07/07/24 15:47 Blood Pressure 143/79 H 07/07/24 15:47 Pulse Oximetry 99 07/07/24 15:47 Oxygen Delivery Room Air 07/07/24 14:00 <Selena Flowers MD - Last Filed: 07/08/24 06:41> MDM - Chest Pain MDM Narrative Medical decision making narrative: patient presents with chest pain occurring approximately 1 week. She describes it as a tightness under and around her left breast. recent mammogram although her symptoms started prior to this. In the emergency department she is afebrile with vital signs notable for mild hypertension. HEART SCORE History 2 highly suspicious 1 moderately suspicious 0 slightly suspicious History score [address] depression/elevation not due to LBBB, LVH, or digoxin [address] depression but LBBB, LVH, nonspecific repolarization changes 0 normal ECG score 1 Age 2 >/= 65 1 45-64 0 <45 Age score 1 Risk factors (HTN, hypercholesterolemia, DM, obesity with BMI >30, current smoker or cessation </=3mo), positive fam hx with parent or sibling with CVD before age 65, atherosclerotic disease (prior VA, PCI/CABG, CVA/TIA, or peripheral arterial disease) 2 >/= 3 risk factors or history of atherosclerotic dz 1 - 1-2 risk factors 0 no known risk factors Risk factor score 1 (cholesterol) Initial Troponin 2 >3 times normal limit 1 1-3 times normal limit 0 less than or equal to normal limit Troponin score 0 Total HEART Score 3 with 2nd negative troponin. patient's workup has otherwise not identified a clear etiology for her symptoms but she is otherwise low risk. She has a follow-up appointment with hat marker Dr Adkins scheduled for August 07, 2024. Advised to keep that appointment. Provided prescriptions acetaminophen ibuprofen. Discharged in stable condition. <Selena Flowers MD - Last Filed: 07/08/24 06:41> Differential Diagnosis Differential diagnosis: Likely stable angina, unstable angina pectoris, atypical chest pain, st elevation myocardial infarction, chest pain, biliary colic and other ( herpes zoster, considered pain due to recent mammogram but sx started before) <Selena Flowers MD - Last Filed: 07/08/24 06:41> Lab Data Attestation: I reviewed the patient's lab results. <Selena Flowers MD - Last Filed: 07/08/24 06:41> Lab results narrative: No marked abnormalities on CBC, normal renal function, no marked electrolyte abnormalities <Selena Flowers MD - Last Filed: 07/08/24 06:41> Result diagrams: 07/07/24 11:02 07/07/24 11:02 <Malika Lucero PA-C - Last Filed: 07/07/24 16:06> Labs: Lab Results 07/07/24 07/07/24 Range/Units 11:02 14:02 WBC 5.7 (4.5-10.0) K/mm3 RBC 4.51 (4.2-5.4) M/mm3 Hgb 13.6 (12.0-15.0) g/dL Hct 41.5 (37.0-47.0) % MCV 92.0 (80-100) fl MCH 30.2 (26-34) pg MCHC 32.8 (32-36) g/dl RDW 11.9 (11.5-14.5) % Plt Count 331 (150-375) k/mm3 MPV 8.7 (7.4-10.4) fl Immature Gran % (Auto) 0.2 (0-0.5) % Neut % (Auto) 42.1 L (45.5-73.1) % Lymph % (Auto) 40.4 (18.3-44.2) % [place] % (Auto) 7.1 (2.6-8.5) % Eos % (Auto) 9.7 H (0-4.4) % Baso % (Auto) 0.5 (0.2-1.2) % Lymph # (Auto) 2.28 (0.9-3.2) K/mm3 [place] # (Auto) 0.4 (0.1-0.6) K/mm3 Eos # (Auto) 0.6 H (0-0.3) K/mm3 Baso # (Auto) 0.0 (0.0-0.1) K/mm3 Abs Immat Gran (auto) 0.01 (0.00-0.031) K/mm3 Absolute Neuts (auto) 2.4 (1.3-6.7) K/mm3 Absolute Nucleated RBC 0.000 (0.0-0.012) K/mm3 Nucleated RBC % 0.0 (0.0-0.2) % PT 12.5 (11.1-14.7) Seconds INR 0.9 APTT 26.1 (22.3-36.8) Seconds Sodium 142 (137-145) mmol/L Potassium 4.2 (3.4-5.0) mmol/L Chloride 105 (98-107) mmol/L Carbon Dioxide 29 (22-30) mmol/L Anion Gap 8 (4-12) mmol/L BUN 13 (7-17) mg/dL Creatinine 0.70 (0.7-1.0) mg/dL Estim Creat Clear Calc 83 ml/min Estimated GFR > 60 (59 - ) Glucose 100 (65-110) mg/dL Calcium 9.5 (8.4-10.2) mg/dL Total Bilirubin 0.6 (0.2-1.3) mg/dL AST 29 (14-36) U/L ALT 29 (6-35) U/L Alkaline Phosphatase 70 (38-126) U/L Troponin I < 0.012 < 0.012 (0.000-0.034) ng/mL Total Protein 8.0 (6.3-8.2) g/dL Albumin 4.7 (3.5-5.1) g/dL Lipase 65 (23-300) U/L <Malika Lucero PA-C - Last Filed: 07/07/24 16:06> Lab Results 07/07/24 07/07/24 Range/Units 11:02 14:02 WBC 5.7 (4.5-10.0) K/mm3 RBC 4.51 (4.2-5.4) M/mm3 Hgb 13.6 (12.0-15.0) g/dL Hct 41.5 (37.0-47.0) % MCV 92.0 (80-100) fl MCH 30.2 (26-34) pg MCHC 32.8 (32-36) g/dl RDW 11.9 (11.5-14.5) % Plt Count 331 (150-375) k/mm3 MPV 8.7 (7.4-10.4) fl Immature Gran % (Auto) 0.2 (0-0.5) % Neut % (Auto) 42.1 L (45.5-73.1) % Lymph % (Auto) 40.4 (18.3-44.2) % [place] % (Auto) 7.1 (2.6-8.5) % Eos % (Auto) 9.7 H (0-4.4) % Baso % (Auto) 0.5 (0.2-1.2) % Lymph # (Auto) 2.28 (0.9-3.2) K/mm3 [place] # (Auto) 0.4 (0.1-0.6) K/mm3 Eos # (Auto) 0.6 H (0-0.3) K/mm3 Baso # (Auto) 0.0 (0.0-0.1) K/mm3 Abs Immat Gran (auto) 0.01 (0.00-0.031) K/mm3 Absolute Neuts (auto) 2.4 (1.3-6.7) K/mm3 Absolute Nucleated RBC 0.000 (0.0-0.012) K/mm3 Nucleated RBC % 0.0 (0.0-0.2) % PT 12.5 (11.1-14.7) Seconds INR 0.9 APTT 26.1 (22.3-36.8) Seconds Sodium 142 (137-145) mmol/L Potassium 4.2 (3.4-5.0) mmol/L Chloride 105 (98-107) mmol/L Carbon Dioxide 29 (22-30) mmol/L Anion Gap 8 (4-12) mmol/L BUN 13 (7-17) mg/dL Creatinine 0.70 (0.7-1.0) mg/dL Estim Creat Clear Calc 83 ml/min Estimated GFR > 60 (59 - ) Glucose 100 (65-110) mg/dL Calcium 9.5 (8.4-10.2) mg/dL Total Bilirubin 0.6 (0.2-1.3) mg/dL AST 29 (14-36) U/L ALT 29 (6-35) U/L Alkaline Phosphatase 70 (38-126) U/L Troponin I < 0.012 < 0.012 (0.000-0.034) ng/mL Total Protein 8.0 (6.3-8.2) g/dL Albumin 4.7 (3.5-5.1) g/dL Lipase 65 (23-300) U/L <Selena Flowers MD - Last Filed: 07/08/24 06:41> Imaging Data Radiologist's impression: Impressions Chest X-Ray 07/07/24 12:28 IMPRESSION: 1. No acute cardiopulmonary disease. <Selena Flowers MD - Last Filed: 07/08/24 06:41> ECG Data EKG #1: Attestation: I personally reviewed and interpreted this ECG as follows: <Selena Flowers MD - Last Filed: 07/08/24 06:41> ECG completion date: 07/07/24 <Selena Flowers MD - Last Filed: 07/08/24 06:41> ECG completion time: 10:58 <Selena Flowers MD - Last Filed: 07/08/24 06:41> Interpretation: Sinus bradycardia at a rate of 55 beats per minute. RI interval 183. QRS 117. QT/ QTC 408/398. Good R-wave progression across the precordial leads. No T-wave inversions. <Selena Flowers MD - Last Filed: 07/08/24 06:41> EKG #2: Attestation: I personally reviewed and interpreted this ECG as follows: <Selena Flowers MD - Last Filed: 07/08/24 06:41> ECG completion date: 07/07/24 <Selena Flowers MD - Last Filed: 07/08/24 06:41> ECG completion time: 14:00 <Selena Flowers MD - Last Filed: 07/08/24 06:41> Interpretation: Sinus bradycardia at a rate of 51 beats per minute. RI 182, QRS 125, QT/QTC 435/413. Good R-wave progression across the precordial leads. Questionable T-wave inversion in V3 although looks improved on the 2nd complex in that lead. Also T-wave flattening in V4. <Selena Flowers MD - Last Filed: 07/08/24 06:41> Critical Care Time Critical Care Time Critical Care Time: No <Malika Lucero PA-C - Last Filed: 07/07/24 16:06> Discharge Plan Discharge Clinical Impression: Chest pain, Breast pain, left <Malika Lucero PA-C - Last Filed: 07/07/24 16:06> Instructions: Antibiotic Form, Chest Pain (ED) <Malika Lucero PA-C - Last Filed: 07/07/24 16:06> Additional Instructions: as we discussed, your workup did not identify clear cause of your symptoms. Keep your upcoming follow-up appointment with your hat marker Dr Adkins. return to the emergency department with any new or worsening symptoms. It is safe to take the prescribed medications including together if desired. <Malika Lucero PA-C - Last Filed: 07/07/24 16:06> Prescriptions: New ibuprofen 600 mg tablet 600 mg PO TID PRN (Reason: pain) Qty: 20 0RF acetaminophen 500 mg capsule 1,000 mg PO Q6H PRN (Reason: pain) Qty: 20 0RF No Action Repatha SureClick 140 mg/mL pen injector 140 mg subcut [id number] metformin 500 mg tablet 500 mg PO DAILY Patient Comments: HAS NOT TAKEN FOR OVER A WEEK cyanocobalamin (vitamin B-12) 1,000 mcg/mL solution 1,000 mcg subcut MONTHLY escitalopram oxalate 10 mg tablet 10 mg PO DAILY berberine-herbal comb no.18 Capsule 1 cap PO BIDWMEAL Magnesium Complex 300 mg magnesium Tablet 300 mg PO BIDWM Biocel Salts 1 dose PO DAILY Spectra-Lite 1 dose PO DAILY <Malika Lucero PA-C - Last Filed: 07/07/24 16:06> Follow-up/Referrals: PHYSICIAN NOT ON STAFF,NONSTAFF [Non-Staff] - <Malika Lucero PA-C - Last Filed: 07/07/24 16:06> Stand Alone Forms: Work/School Release IP <Malika Lucero PA-C - Last Filed: 07/07/24 16:06> Time of Disposition: 15:09 <Malika Lucero PA-C - Last Filed: 07/07/24 16:06> 15:09 <Selena Flowers MD - Last Filed: 07/08/24 06:41>
[2024-07-07] MEDS: PANTOPRAZOLE SODIUM IV 40 MG VIAL IV PUSH (12:26)
--- NOTE | 2024-07-07 13:56 | ECG_ITS ---
Test Date: 2024-07-07 14:00:49 Measurements Intervals [place] Rate: 51 P: 39 NV: 182 QRS: -12 QRSD: 125 T: 69 QT: 435 QTc: 404 Interpretive Statements SINUS BRADYCARDIA LEFT BUNDLE BRANCH BLOCK ABNORMAL ECG Compared to ECG 07/07/2024 10:58:33 LEFT BUNDLE BRANCH BLOCK NOW PRESENT Electronically Signed On 07-07-2024 14:12:55 CDT by Edward Sahu D.O.
[2024-07-07 14:35] LABS: Troponin I < 0.012 ng/mL (0.000-0.034)
== END 2024-07-07 15:25 | disposition home or self-care (01) ==
PROVIDERS: Emergency Provider Student in an Organized Health Care Education/Training Program
DX: R07.9 Chest pain, unspecified (principal); N64.4 Mastodynia; E78.5 Hyperlipidemia, unspecified; G47.33 Obstructive sleep apnea (adult) (pediatric); F32.A Depression, unspecified; Z87.891 Personal history of nicotine dependence
CPT/HCPCS: 36415; 71046; 80053; 83690; 84484; 85025; 85610; 85730; 93005; 96374; 99284; J2470

== ENCOUNTER 2024-10-26 00:15 | Day surgery (SDC) | payer OTHER, SELFPAY ==
[2024-10-11 09:16] VITALS: BMI 35.6
--- OUTSIDE RECORDS SUMMARY | 2024-10-26 00:19 | XMS_ITS | Data Portability ---
Author Organization [place] - [facility] [employer], Main Office Address [address] [place] [address] Care Team Providers Care Document Preparation Specialist Name Role Phone REGINA PENA Hoseman PHOEBE DELGADO Wheel Assembler BRAD STRAUSS Student Worker [phone] DEBORAH WALSH Primary Care Provider CECILIO AGUILAR Earth Science Professor Assessment Encounter Date Assessment Date Assessment LastModified by Organization Details LastModified Time 12/01/2023 12/01/2023 11/29/2023: Dr Aguilar Chol 221, LDL 143 A1C 5.7 Insulin 23.5N [email or web address] Not available 12/01/2023 14:19:39 07/26/2024 07/26/2024 11/29/2023: Dr Aguilar Chol 221, LDL 143 A1C 5.7 Insulin 23.5N 07/05/2024: Insulin 16.2 VIT D 101 [email or web address] Not available 07/26/2024 15:52:47 08/01/2024 08/01/2024 Time spent with patient included: preparing to see patient by reviewing tests, obtaining and reviewing history, medical examination and evaluation, counseling and educating the patient, ordering medications and tests, documenting clinical information in EHR, independently interpreting results and communicating results to the patient for a total of 42 minutes. [email or web address] Not available 08/01/2024 16:13:16 Plan of Treatment Reminders Order Date Submit Date Provider Last Modified By Organization Details Last Modified Time Details Appointments None recorded. Lab CMP, serum or plasma 2023 024 [facility], [address], [address], [place], [address], 5 04:05:44 lipid panel, serum 2023 [facility], [address], [address], [place], [address], 5 04:05:44 hemoglobin , gastrointe stinal, stool 2023 FIDEL In-House Results, For Internal Use Only, Do Not Delete/merge, [id number] 5 04:05:45 urinalysis , dipstick 2023 FIDEL In-House Results, For Internal Use Only, Do Not Delete/merge, [id number] 5 04:05:45 vitamin D, 25-hydroxy , total, serum 2023 [facility], [address], [address], [place], [address], 5 04:05:45 TSH, serum or plasma 2023 [facility], [address], [address], [place], [address], 5 04:05:45 T4, free, serum 2023 FIDEL [facility], [address], [address], [place], [address], 5 04:05:45 vitamin D, 25-hydroxy , total, serum 2023 FIDEL [facility], [address], [address], [place], [address], 5 04:05:28 insulin, serum 2023 FIDEL [facility], [address], [address], [place], [address], 4 16:20:29 vitamin D, 25-hydroxy , total, serum [address], [address], [address], [place], [address], 4 09:21:43 CBC w/ auto diff 2023 024 [facility], [address], [address], [place], [address], 4 05:12:34 CMP, serum or plasma [address], [address], [address], [place], [address], 4 09:21:42 TSH + free T4, serum [address], [address]22 [address], [address], [place], [address], 4 09:21:42 HbA1c (hemoglobi n A1c), blood 2022 023 BRADDOCK [facility], [address], [address], [place], [address], 3 17:56:49 insulin, serum 2022 023 FIDEL Mei, [address], [address], [place], [address], 3 17:56:49 TSH + free T4, serum 2022 023 FIDEL Mei, [address], [address], [place], [address], 3 17:56:49 T3, free, serum or plasma 2022 023 FIDELMERCEDES Donato, [address], [address], [place], [address], 3 17:56:49 thyroid peroxidase (tpo) Ab, serum 2022 023 [facility], [address], [address], [place], [address], 3 17:56:49 lipid panel, serum 2022 023 [facility], [address], [address], [place], [address], 3 17:56:[address] referral - Please call patient to schedule. 2023 024 FIDEL Carvalho, [address], [address], [place], [address], Ph [phone] 5 04:17:48 pulmonolog ist referral - Please call patient to schedule. 2023 024 Regina Pena MEMORANDUM STATEMENT CLERK-C, [address] [facility], [address], [place], [address], 4 18:02:[address] referral - Please call patient to schedule. 2023 024 [place], [address] [address] , [address], [place], [address], 4 09:21:[address] referral 2023 024 Tiff Carvalho, [address], [address], [place], [address], Ph [phone] 4 10:41:08 endocrinol ogy referral 2023 024 [email or web address] Phil Vazquez MD, [address], [place], [address], 4 10:41:09 Procedures upper endoscopy procedure (EGD) (PROC) - Please call patient to schedule. 2023 024 KARIME Strauss MD, [address] [facility] [address], [address], [place], [address], 09:33:26 Surgeries None recorded. Imaging MAMMO, screening, digital, bilateral - Please call patient to schedule.* *Due on or around 07/05/2025 2023 024 [email or web address] [facility], [address], [address], [place], [address], 14:41:10 DEXA, axial skeleton - Please call patient to schedule. 2023 024 [email or web address] [facility], [address], [address], [place], [address], 4 12:41:07 US, liver - Please call patient to schedule. 2023 024 [email or web address] [facility], [address], [address], [place], [address], 4 12:41:01 MAMMO, screening, digital, bilateral 2023 024 [facility], [address], [address], [place], [address], 4 08:09:10 home sleep study 2023 024 [email or web address] [id number] [facility], [address], [address], [place], [address], 4 09:13:44 DEXA, axial skeleton 2023 024 [email or web address] [facility], [address], [address], [place], [address], 11:02:01 Medication Orders Ozempic 0.25 mg or 0.5 mg (2 mg/3 mL) subcutaneo us pen injector 2022 023 [email or web address] [id number], [address], [place], [address], 14:21:58 Patient TargetsNo targets recorded. Patient InstructionsNo instructions recorded. Reason for Referral Pharmacovigilance Scientist Referral for Gy necologic examination Referring Physician: Deborah Walsh, Internal Medicine, Encounter Date: 12/01/2023 Endocrinology Referral for H yperlipidemia Referring Physician: Deborah Walsh Internal Medicine, Encounter Date: 12/01/2023 Pharmacovigilance Scientist Referral for Gy necologic examination Please call patient to schedule. Referring Physician: Deborah Walsh Internal Medicine, Encounter Date: 07/26/2024 Wheel Assembler Referral for He art murmur Please call patient to schedule. Referring Physician: Deborah Walsh Internal Medicine, Encounter Date: 07/26/2024 Hoseman Referral for O bstructive sleep apnea syndrome Please call patient to schedule. Referring Physician: Deborah Walsh Internal Medicine, Encounter Date: 07/26/2024 Results Created Date Observation Date Name Description Value Unit Range Abnormal Flag Note LastModifiedBy Organization Detail LastModifiedTime 08/07/20 22 08/07/2022 MAMMO , scree tom, digit al, bilat eral No observ ation record ed. [id number] [facility] [address], [place], [address], 11/04/2022 03:34:01 09/04/20 22 08/07/2022 MAMMO , scree tom, digit al, bilat eral No observ ation record ed. [id number] [facility] [address], [place], [address], 11/04/2022 03:34:01 10/13/19 23 10/13/2022 MAMMO , diagn ostic , digit al, unila teral No observ ation record ed. [id number] [facility] [address], [place], [address], 11/04/2022 03:34:01 10/13/19 23 10/13/2022 MAMMO , diagn ostic , digit al, unila teral No observ ation record ed. [id number] [facility] [address], [place], [address], 11/04/2022 03:34:01 10/13/19 23 10/13/2022 MAMMO , diagn ostic , digit al, unila teral No observ ation record ed. [id number] [facility] [address], [place], [address], 11/04/2022 03:34:01 10/13/19 23 10/13/2022 MAMMO , diagn ostic , digit al, unila teral No observ ation record ed. [id number] [facility] [address], [place], [address], 11/04/2022 03:34:01 05/22/20 24 05/19/2024 MAMMO , scree tom, digit al, bilat eral No observ ation record ed. FIDEL [facility] [address], [place], [address], 05/22/2024 08:09:10 05/22/20 24 05/19/2024 MAMMO , scree tom, digit al, bilat eral No observ ation record ed. [facility] [address], [place], [address], 06/13/2024 17:00:10 07/05/20 24 07/05/2024 MAMMO , diagn ostic , digit al, unila teral No observ ation record ed. [facility] [address], [place], [address], 07/05/2024 13:17:30 08/15/20 24 08/15/2024 nucle ar stres s test No observ ation record ed. [email or web address] [facility] [address], [place], [address], 09/04/2024 12:39:37 09/20/19 25 09/19/2024 imagi ng/di agnos tic resul t No observ ation record ed. [facility] [address], [place], [address], 09/20/2024 14:47:22 Result Notes None recorded. Problems Name Problem SNOMED Code Status Onset Date Resolution Date Notes Provider Name and Address Organization Details Recorded Time Familial hyperchole sterolemia 536001638 Active 2022 Cecilio Aguilar MD [address], [place], [address] , [employer] 3 17:55:39 Prediabete s 623789662 Active 2022 Cecilio Aguilar MD [address], [place], [address] , [employer] 3 17:59:01 Dysphagia 36719219 Active 2023 Deborah quezada MD [address], [place], [address] , [employer] 4 17:45:56 Obesity 055185642 Active 2023 Deborah quezada MD [address], [place], [address] , [employer] 4 17:46:01 Moderate recurrent major depression 57276252 Active 2023 Deborah quezada MD [address], [address], [place], [address] , [employer] [facility] [employer] [facility] 4 17:46:08 Heart murmur 67501314 Active 2023 Deborah quezada MD [address], [address], [place], [address] , [employer] [employer] [facility] 4 17:46:15 Eczema 25660043 Active 2023 Deborah quezada MD [address], [address], [place], [address] , [employer] [facility] [employer] [facility] 4 17:46:59 Microscopi c hematuria 038778574 Active 2023 Deborah quezada MD [address], [address], [place], [address] , [employer] [facility] [employer] [facility] 4 17:47:10 Liver enzymes level above reference range 642798867 Active 2023 Deborah quezada MD [address], [address], [place], [address] , [employer] [facility] [employer] [facility] 4 17:58:05 Anti-nucle ar factor detected 547782245 Active 2021 Not Available [facility] 3 03:22:55 Mammograph y abnormal 580963196 Active 2021 Not Available [facility] 3 03:22:55 Abdominal pain 52764585 Active Not Available [facility] 3 03:22:55 Basim thyroiditi s 78074240 Active 2021 Not Available [facility] 3 03:22:55 Chronic constipati on 303196940 Active Not Available [facility] 3 03:22:55 Shoulder joint pain 604197893 Active Not Available [facility] 3 03:22:55 Vitamin D deficiency 99215912 Active 2021 Not Available [facility] 3 03:22:55 Depressive disorder 10040690 Active Not Available [facility] 3 03:22:55 Dyslipidem ia 296359017 Active 2021 Not Available [facility] 3 03:22:55 Impaired fasting glycemia 090638599 Active 2021 Not Available [facility] 3 03:22:55 Umbilical hernia 403029937 Active 2021 Not Available [facility] 3 03:22:55 Adhesive capsulitis of shoulder 935393994 Active Not Available [facility] 3 03:22:55 Shoulder pain 62494190 Active Not Available [facility] 3 03:22:55 Disturbanc e in sleep behavior 82805938 Active 2016 Not Available [facility] 3 03:22:55 Hyperlipid emia 55192511 Active Not Available [facility] 3 03:22:55 Joint pain 88755432 Active Not Available [facility] 3 03:22:56 Tinea pedis 0896330 Active Not Available [facility] 3 03:22:56 Rhinitis 89353162 Active 2016 Not Available [facility] 3 03:22:56 Obstructiv e sleep apnea syndrome 32882435 Active 2021 Not Available [facility] 3 03:22:56 Fatigue 01281492 Active 2021 Not Available 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 Procedures Surgical History Date Name Laterality Status Provider Name and Address Organization Details Recorded Time 10/07/19 12 Date of Last Colonoscopy completed Not Available [facility] 11/04/2022 03:15:35 section completed Not Available [facility] 11/04/2022 03:15:41 Tubal Ligation completed Not Available [facility] 11/04/2022 03:15:41 Ablation completed Not Available [facility] 03:15:41 Imaging Results Imaging Date Name Status LastModified by Organiz ation Details LastModified Time 08/07/2022 MAMMO, screening, digital, bilateral completed [id number] [facility] [address], [place], [address], 11/04/2022 03:34:01 10/13/2022 MAMMO, diagnostic, digital, unilateral completed [id number] [facility] [address], [place], [address], 11/04/2022 03:34:01 10/13/2022 MAMMO, diagnostic, digital, unilateral completed [id number] [facility] [address], [place], [address], 11/04/2022 03:34:01 10/13/2022 MAMMO, diagnostic, digital, unilateral completed [id number] [facility] [address], [place], [address], 11/04/2022 03:34:01 10/13/2022 MAMMO, diagnostic, digital, unilateral completed [id number] [facility] [address], [place], [address], 11/04/2022 03:34:01 08/07/2022 MAMMO, screening, digital, bilateral completed [id number] [facility] [address], [place], [address], 11/04/2022 03:34:01 05/19/2024 MAMMO, screening, digital, bilateral active FIDEL [facility] [address], [place], [address], 05/22/2024 08:09:10 05/19/2024 MAMMO, screening, digital, bilateral completed [email or web address] [facility] [address], [place], [address], 06/13/2024 17:00:10 07/05/2024 MAMMO, diagnostic, digital, unilateral active [facility] [address], [place], [address], 07/05/2024 13:17:30 08/15/2024 nuclear stress test active [email or web address] [facility] [address], [place], [address], 09/04/2024 12:39:37 09/19/2024 imaging/diagnos tic result active [facility] [address] [facility] [address], [place], [address], 09/20/2024 14:47:22 Procedure Notes None recorded. Medical Equipment None Reported. Allergies No known drug allergies Medications Name Sig Start Date Stop Date Status Note LastModified by Organization Details LastModified Time amoxicillin 500 mg capsule TAKE 1 CAPSULE BY MOUTH 3 TIMES A DAY UNTIL GONE 02/04 completed Not Available Not Available Not Available prednisone 10 mg tablet 01/06 completed Not Available Not Available Not Available BD Luer-Isela Syringe 3 mL 25 x 5/8 USE TO INJECT B12 INJECTION ONCE WEEKLY 02/04 completed Not Available Not Available Not Available atorvastati n 10 mg tablet Take 1 tablet every day by oral route. 07/15 completed Not Available Not Available Not Available azithromyci n 250 mg tablet TAKE 2 TABLETS BY MOUTH TODAY, THEN TAKE 1 TABLET DAILY FOR 4 DAYS DIRECTED 07/26 completed Not Available Not Available Not Available pravastatin 40 mg tablet Take 1 tablet every day by oral route for 90 days. 02/04 completed Not Available Not Available Not Available fluconazole 150 mg tablet TK 1 T PO X1 on day 3 of antibioti c treatemen t, then repeat dose x1 in 1 week active Not Available Not Available No t Available Lotrisone 1 %-0.05 % topical cream APPLY TO THE AFFECTED AND SURROUNDI NG AREAS OF SKIN BY TOPICAL ROUTE 2 TIMES PER DAY IN THE MORNING AND EVENING FOR 2 WEEKS 10/26 completed Not Available Not Available Not Available hydrocodone 5 mg-acetamin ophen 325 mg tablet TAKE 1 TABLET BY MOUTH EVERY 4 TO 6 HOURS NEEDED FOR PAIN 02/04 completed Not Available Not Available Not Available clobetasol 0.05 % topical cream PRN 02/04 completed Not Available Not Available Not Available penicillin V potassium 500 mg tablet TK 4T PO QD 07/18 completed Not Available Not Available Not Available metronidazo le 500 mg tablet TK 1 T PO BID FOR 7 DAYS active Not Available Not Available No t Available phentermine 37.5 mg tablet TAKE 1 TABLET BY MOUTH EVERY DAY. NO ALCOHOL, DRIVING, OR WITH SEDATING MEDICATIO NS 04/04 completed Not Available Not Available Not Available triamcinolo ne acetonide 0.1 % topical cream 07/15 completed Not Available Not Available Not Available amoxicillin 500 mg tablet Take 1 tablet 3 times a day by oral route. active Not Available Not Available No t Available levothyroxi ne 25 mcg tablet one tablet daily 01/30 completed Not Available Not Available Not Available Macrobid 100 mg capsule Take 1 capsule every 12 hours by oral route for 5 days. active Not Available Not Available No t Available alprazolam 0.25 mg tablet Take 1 tablet as needed by oral route as needed. 01/06 completed Not Available Not Available Not Available Keflex 250 mg capsule Take 1 capsule every 6 hours by oral route for 7 days. 10/23 completed Not Available Not Available Not Available cyanocobala min (vit B-12) 1,000 mcg/mL injection solution INJECT 1 ML SUBCUTANE OUSLY EVERY WEEK IN THE MORNING FOR 90 DAYS 02/04 completed Not Available Not Available Not Available Cipro 500 mg tablet Take 1 tablet twice a day by oral route for 7 days. active Not Available Not Available No t Available nystatin 100,000 unit/gram topical cream 07/15 completed Not Available Not Available Not Available metronidazo le 0.75 % topical cream active Not Available Not Available Not Available nystatin-tr iamcinolone 100,000 unit/g-0.1 % topical cream Apply 1 applicati on twice a day by topical route as needed for 30 days. active Not Available Not Available No t Available diclofenac sodium 75 mg tablet,negra yed release 01/06 completed Not Available Not Available Not Available pravastatin 20 mg tablet Take 1 tablet every day by oral route for 90 days. 10/23 completed Not Available Not Available Not Available ergocalcife rol (vitamin D2) 1,250 mcg (50,000 unit) capsule TAKE 1 CAPSULE BY MOUTH ONCE WEEKLY active Not Available Not Available No t Available methylpredn isolone 4 mg tablets in a dose pack TAKE 6 TABLETS ON DAY 1 DIRECTED ON PACKAGE AND DECREASE BY 1 TAB EACH DAY FOR A TOTAL OF 6 DAYS 02/04 completed Not Available Not Available Not Available fluticasone propionate 50 mcg/actuati on nasal spray,suspe nsion USE 2 SPRAYS IN EACH NOSTRIL ONCE DAILY AT SUPPERTIM E 01/06 completed Not Available Not Available Not Available metformin ER 500 mg tablet,exte nded release 24 hr TAKE 1 TABLET BY MOUTH EVERY DAY AT DINNER 02/04 completed Not Available Not Available Not Available escitalopra m 10 mg tablet TAKE 1 TABLET BY MOUTH EVERY DAY *NO ALCOHOL, DRIVING OR SEDATING MEDS. NOTIFY DR IF CHANGE IN MOOD* 07/26 completed Not Available Not Available Not Available rosuvastati n 20 mg tablet TAKE ONE TABLET DAILY active Not Available Not Available No t Available rosuvastati n 40 mg tablet TAKE 1 TABLET BY MOUTH EVERY DAY 07/18 completed Not Available Not Available Not Available magnesium 10/23 completed Not Available Not Available Not Available potassium acetate 02/04 completed otc Not Available Not Available Not Available vitamin E qd 02/04 completed Not Available Not Available Not Available zinc 02/04 completed otc Not Available Not Available Not Available biotin TK 1T PO QD 02/04 completed Not Available Not Available Not Available Vitamin D TK 1T PO QD 02/04 completed Not Available Not Available Not Available potassium 02/04 completed Not Available Not Available Not Available Calcium 500 qd 10/24 completed Not Available Not Available Not Available berberine-h erbal comb no.18 07/26 completed Not Available Not Available Not Available sodium,pota ssium,mag sulfates 17.5 gram-3.13 gram-1.6 gram oral soln TAKE DIRECTED. 02/04 completed Not Available Not Available Not Available Vitamin D2 qd 04/18 completed Not Available Not Available Not Available Linzess 145 mcg capsule TAKE 1 CAPSULE DAILY 10/26 completed Not Available Not Available Not Available Multi Vitamin TK 1T PO QD 08/15 completed Not Available Not Available Not Available Repatha SureClick 140 mg/mL subcutaneou s pen injector INJECT THE CONTENTS OF 1 PEN UNDER THE SKIN ONCE DAILY IN THE MORNING active Not Available Not Available No t Available Ozempic 0.25 mg or 0.5 mg (2 mg/3 mL) subcutaneou s pen injector 11/30 completed Not Available Not Available Not Available Vitals Date Recorded Body height Body mass index (BMI) Body weight Body temperature Heart rate Systolic blood pressure Diastolic blood pressure Provider Name and Address Organization Details Last Updated DateTime 3 165.1 cm 30.4 kg/m2 92375.9 7 g 97.6 [degF] 55 /min 118 mm[Hg] 78 mm[Hg] SOL Choudhary [place] - S [facility] [employer] 3 17:41:18 Date Recorded Body height Body mass index (BMI) Body weight Body temperature Heart rate Oxygen saturation Oxygen saturation in Arterial blood by Pulse oximetry Systolic blood pressure Diastolic blood pressure Provider Name and Address Organization Details Last Updated DateTime 4 165.1 cm 32.8 kg/m2 73758.7 g 97.8 [degF] 64 /min 97 % 97 % 128 mm[Hg] 76 mm[Hg] Jackelin Hough MA [facility] [employer] [facility] 4 14:27:19 Date Recorded Body height Body mass index (BMI) Body weight Body temperature Heart rate Systolic blood pressure Diastolic blood pressure Provider Name and Address Organization Details Last Updated DateTime 4 165.1 cm 31.1 kg/m2 49100.7 7 g 98.7 [degF] 72 /min 116 mm[Hg] 80 mm[Hg] SOL Roland [facility] [employer] [facility] 4 15:27:41 Date Recorded Body height Body mass index (BMI) Body weight Heart rate Oxygen saturation Oxygen saturation in Arterial blood by Pulse oximetry Body temperature Systolic blood pressure Diastolic blood pressure Provider Name and Address Organization Details Last Updated DateTime 4 165.1 cm 31.3 kg/m2 10734.3 7 g 81 /min 98 % 98 % 98.7 [degF] 126 mm[Hg] 78 mm[Hg] Geovanna Loredo MA [facility] [employer] [facility] 4 15:46:15 Date Recorded Body mass index (BMI) Body height Oxygen saturation Oxygen saturation in Arterial blood by Pulse oximetry Heart rate Respiratory rate Body temperature Body weight Systolic blood pressure Diastolic blood pressure Provider Name and Address Organization Details Last Updated DateTime 3 27.8 kg/m2 165.1 cm 98 % 98 % 63 /min 16 /min 97.6 [degF] 20319.9 3 g 130 mm[Hg] 82 mm[Hg] Not Available [facility] 3 03:17:16 Social History Question Answer Notes LastModified by Organizat ion Details LastModified Time Tobacco Smoking Status Former Smoker quit 04/20/[address] [facility] 11/04/2022 03:00:53 Do You Have An Advance Directive? No MIGRATION.81707 [id number] Information not available 11/04/2022 What Is Your Level Of Alcohol Consumption? Occasional MIGRATION.92325 29030 Information not available 11/04/2022 Are You Blind Or Do You Have Difficulty Seeing? No MIGRATION.20215 84259 Information not available 11/04/2022 What Is Your Level Of Caffeine Consumption? Moderate MIGRATION.96094 54393 Information not available 11/04/2022 How Much Tobacco Do You Chew? None MIGRATION.69439 48678 Information not available 11/04/2022 In The 14 Days Before Symptom Onset, Have You Had Close Contact With A Laboratory-confir med COVID-19 While That Case Was Ill? No MIGRATION.01183 91564 Information not available 11/04/2022 In The 14 Days Before Symptom Onset, Have You Had Close Contact With A Person Who Is Under Investigation For COVID-19 While That Person Was Ill? No MIGRATION.97687 80937 Information not available 11/04/2022 Are You Deaf Or Do You Have Serious Difficulty Hearing? No MIGRATION.41713 81985 Information not available 11/04/2022 What Type Of Diet Are You Following? REGULAR MIGRATION.70538 87396 Information not available 11/04/2022 Do You Have An Electrostatic Air Filter? 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 6-10yearssince lastcigarette MIGRATION.44256 82916 Information not available 11/04/2022 Are There Any Guns Present In Your Home? No MIGRATION.44216 36461 Information not available 11/04/2022 Do You Have A Humidifier? No Information not available 08/01/2024 Do You Have Moisture Problems In Your Home? No Information not available 08/01/2024 What Was The Date Of Your Most Recent Tobacco Screening? 08/01/2024 Information not available 08/01/2024 What Is Your Current Pack Years? 20-29packyears MIGRATION.31096 24455 Information not available 11/04/2022 Have You Ever Been Counseled For Unhealthy Alcohol Use? No MIGRATION.55220 05502 Information not available 11/04/2022 Do You Have Any Pets? Yes Information not available 08/01/2024 What Is Your Relationship Status? Single MIGRATION.52136 00699 Information not available 11/04/2022 Do You Use Your Seat Belt Or Car Seat Routinely? Yes Information not available 08/01/2024 Do You Have Smoke And Carbon Monoxide Detectors In Your Home? Yes Information not available 08/01/2024 At What Age Did You Start Smoking Tobacco? 15 MIGRATION.41032 85780 Information not available 11/04/2022 Are You Passively Exposed To Smoke? No Information no t available 08/01/2024 How Much Tobacco Do You Smoke? 0.25 PPD MIGRATION.34601 50824 Information not available 11/04/2022 Do You Feel Stressed (tense, Restless, Nervous, Or Anxious, Or Unable To Sleep At Night)? [id number] Information not available 08/01/2024 Do You Use Any Illicit Or Recreational Drugs? No MIGRATION.16328 58269 Information not available 11/04/2022 Do You Use Sunscreen Routinely? Yes MIGRATION.61307 61725 Information not available 11/04/2022 Has Tobacco Cessation Counseling Been Provided? No MIGRATION.46523 55328 Information not available 11/04/2022 How Many Years Have You Smoked Tobacco? 29 MIGRATION.84874 30397 Information not available 11/04/2022 Have You Recently Traveled Abroad? No MIGRATION.72448 01811 Information not available 11/04/2022 Do You Have Any Dietary Restrictions? No MIGRATION.37340 02776 Information not available 11/04/2022 Do You Or Have You Ever Used Any Other Forms Of Tobacco Or Nicotine? No MIGRATION.33937 66772 Information not available 11/04/2022 Sex: Female Functional Status Question Answer Note LastModified by Organizat ion Details LastModified Time Do you have difficulty walking or climbing stairs? No MIGRATION.1514830 026 Information not available 11/04/2022 Do you have transportation difficulties? No MIGRATION.8590796 026 Information not available 11/04/2022 Are you able to walk? YESWOREST MIGRATION.9404945 026 Information not available 11/04/2022 Do you have difficulty doing errands alone? No MIGRATION.8985042 026 Information not available 11/04/2022 Are you able to care for yourself? Yes MIGRATION.9000156 026 Information not available 11/04/2022 Do you have difficulty dressing or bathing? No MIGRATION.8850904 026 Information not available 11/04/2022 What is your exercise level? Occasional MIGRATION.2925123 026 Information not available 11/04/2022 Mental Status Question Answer Note LastModified by Organizat ion Details LastModified Time Do you have difficulty concentrating, remembering or making decisions? No MIGRATION.420442579 6 Information not available 11/04/2022 Family History Relationship Description Onset Age of this Age Resolved Age Notes LastModified by Organization Details LastModified Time Father Essential hypertension MIGRATION.235 [id number] Not available 11/04/2022 03:15:42 Mother Depressive disorder MIGRATION.470 [id number] Not available 11/04/2022 03:15:42 Mother Primary fibromyalgia syndrome MIGRATION.552 [id number] Not available 11/04/2022 03:15:42 Mother Family history of malignant neoplasm breast cancer MIGRATION.127 [id number] Not available 11/04/2022 03:15:42 Medical History Condition Response HYPOTHYROIDISM Y Gynecological History Statement/Question Response Abnormal Pap N Date of Last Mammogram 10/23/2019 Date of Last Colonoscopy 10/07/2011 Menses Monthly N Date of Last Pap 02/09/2020 Current Control Method Tubal Ligat ion Obstetrics History GPAL:G 0 P 0 0 0 0 Immunizations Vaccine Type Date Status Note Provider Nam e and Address Organization Details Recorded Time Influenza, split virus, quadrivalent, preservative 9 completed Not Available [facility] 11/04/2022 03:33:03 influenza, unspecified formulation 7 completed Not Available [facility] 11/04/2022 03:33:03 Influenza, split virus, quadrivalent, PF 2 completed Not Available [facility] 11/04/2022 03:33:03 Tdap 9 completed Not Available [facility] 11/04/2022 03:33:03 Influenza, split virus, quadrivalent, PF 0 completed Not Available [facility] 11/04/2022 03:33:03 Influenza, split virus, trivalent, PF 4 completed Deborah Walsh MD [address] [place] [address], [place] [address], [place], [address], [facility] [employer] 07/26/2024 19:29:54 Past Encounters Encounter ID Performer Location Encounter Start Date Encounter Closed Date Diagnosis/Indication Diagnosis SNOMED-CT Code Diagnosis ICD10 Code Diagnosis Note [id number] [facility] [place] [address] [facility] [place] [address] 11/18/2020 00:00:00 11/18/2020 18:45:08 [id number] [facility] [place] [address] [place] [address] 04/04/2021 00:00:00 04/04/2021 17:28:10 [id number] [facility] [place] [address] [facility] [place] [address] 04/30/2021 00:00:00 05/01/2021 09:19:02 [id number] [facility] [place] [address] [place] [address] 07/18/2021 00:00:00 07/18/2021 17:42:13 [id number] [facility] Pulmonolo gy [place] [address] [place] [address] 09/18/2021 00:00:00 09/18/2021 15:37:42 [id number] [facility] [place] [address] [place] [address] 10/31/2021 00:00:00 10/31/2021 13:59:19 [id number] [facility] [place] [address] [place] [address] 01/30/2022 00:00:00 01/30/2022 18:10:58 [id number] [facility] Internal [facility] [place] [address] [facility] [place] [address] 05/13/2022 00:00:00 05/13/2022 15:28:31 [id number] [facility] General Surgery [address] [place] [address] 06/11/2022 00:00:00 06/11/2022 13:16:01 [id number] [facility] [place] [address] [place] [address] 06/12/2022 00:00:00 06/15/2022 08:59:04 [id number] [facility] [place] [address] [facility] [address] [place] [address] 07/01/2022 00:00:00 07/01/2022 16:00:53 [id number] Cecilio Aguilar MD [facility] [place] [address] [place] [address] 02/04/2023 17:26:20 02/04/2023 18:08:01 Basim thyroiditis 94063327 E06.3 TSH and FT4 in range, continue with diet low in refined sugars/pro cessed foods. Continue thyroid support. Familial hypercholesterolemia 590030224 E78.01 Continue on repatha 140 mg SQ once every 2 weeks as LDL under 70 mg/dL in range- a1c in range- continue to regulate glucose and thyroid control in addition to PCSK9 inh therapy. Impaired f asting glycemia 405694586 R73.01 Continue on natural insulin solar electric installer s as patient tolerating berberine well. Recommende d she incorporat e natural insulin solar electric installer s such as pears, apples, cinnamon, allison and sweet potatoes to help mobilize her endogenous insulin. Recommende d up to 150 minutes of moderate level activity/e xercise weekly. Prediabetes 988936293 R7 3.03 A1C under 6%- trial on GLP1 agonist therapy as she is having trouble at times with cravings of sweets and portion control. Discussed potentiall y reducing total carb intake to 120 grams daily into 4-5 small split meals with addition of healthy protein based snack at bedtime to help reduce parachute repairer hyperglyce sachi. She has no hx of pancreatit is or medullary thyroid cancer and is willing to trial on a GLP1 agonist therapy. She was advised to contact clinic if she experience s any nausea, vomiting or significan t thyroid pain / swelling or abdominal pain so we can discuss and discontinu e and potentiall y look to other therapy. Will trial on ozempic 0.25 mg SQ weekly x 4 weeks then increase to 0.5 mg SQ weekly with largest meal of that day as tolerated. Spent up to 26 minutes preparing to see the patient (eg, review of tests), obtaining and/or reviewing separately obtained history, performing a medically appropriat e examinatio n and evaluation , counseling and educating the patient, ordering medication s, tests, along with documentin g clinical informatio n in the electronic health record, independen tly interpreti ng results and communicat ing results to the patient. RTC in 6 months. Patient was provided a handwritte n lab order which contains our fax number. If she chooses to go outside of the [facility] system to obtain labwork she was advised to provide our fax number and my informatio n to the lab she will be obtaining labwork from in order to have her labs properly forwarded over for me to review so there is no loss of follow up due to use of outside network. She was also advised to contact our clinic informing us that she has completed her labwork so we are aware we will need to reach out to the appropriat e laboratory to request her results be forwarded to us so I might have the ability to review and make further medical decision making in her case. She voiced understand ing. [id number] Deborah quezada MD [facility] Internal Med [place] [address] [facility] [address] , [facility] [place] [address] 12/01/2023 14:13:12 12/01/2023 14:56:52 Screening - NAD [id number] Z13.9 C-scope: Dr Strauss 06/2022, get the report PAP: S/p apt with Sofiya Salcedo 05/13/2022 Mammogram: 06/13/18: NegMammogr am: 10/23/2019 : NegMammogr am: 04/10/2021 : NegMammogr am 10/13/2022 : Neg DEXA: 01/09/2022 : On vit d and calcium UTD flu shotUTD Tdap 10/24/18Ge t COVID 19 vaccine, follow all CDC guidelines Get shingrix vaccine RTC in 6 months as per her wishesDo labsER if worseShe did verbalize her understand ing of the above Dysphagia 45446101 R13.1 0 OV 11/18/2020 :S/p EGD 10/04/2020 : Unremarkab le, but it was dilated Dr Strauss Given prilosec but not taking it as she feels it is better, declines any new referrals at this time to GI or ENT Obesity 618445283 E66.9 Does not want any referral to gastric surgeonNot on any medsHas seen Dr Aguilar, was told she has had impaired insulin level, she is now fasting and has lost weight too Moderate r ecurrent major depression 89454838 F33.1 Does wellOn lexapro 10mg daily, wants to stop, advised to wean off 12/01/2023 Not suicidal or homicidalD oes not want to see psychiatry Heart murmur 44213570 R0 1.1 ECHO 07/05/18: Trace TR, stage 1 diastolic dysfunctio nDoes wellNo complaints at this time Hyperlipidemia 65962502 E78.5 OV 12/01/2023 :Not on pravastati n 40mg dailyOn repatha 140mg/ml SC 2 weeks, states that she does not want to increase her med,she has been non compliant with her repatha was taking it every 3 weeks, wants to diet and exercise and refer to Dr Vazquez endocrineS een Dr AguilarGet labs Liver enzy mes level above reference range 496831019 R74.01 Get labs Obstructiv e sleep apnea syndrome 85537419 G47.33 Needs to get the sleep study done Was ordered last OV also Eczema 18193933 L30.9 On clobetasol as needed Microscopic hematuria 19 4183665 R31.29 Noted to have R LQ pain, s/p CT A/P, did see Dr GuevaraUA: 07/01/2022 : +ve blood, trace leukReferr ed to urology Dr Jarvis Screening mammography 24 383363 Z12.31 Gynecologi c examination 42408869 Z01.419 Screening for osteoporosis 691711546 Z13.820 Prediabetes 676872322 R7 3.03 [id number] Deborah quezada MD [facility] Primary Care [address] [place] [address] 07/26/2024 15:04:16 07/26/2024 16:38:39 Screening - NAD 695740056 Z13.9 C-scope: Dr Strauss 06/2022, get the report PAP: S/p apt with Sofiya Salcedo 05/13/2022 Mammogram: 06/13/18: NegMammogr am: 10/23/2019 : NegMammogr am: 04/10/2021 : NegMammogr am 10/13/2022 : NegMammogr am: 05/19/2024 : Birads 0, repeat 07/05/2024 : Neg DEXA: 01/09/2022 : On vit d and calcium Get yearly flu shotUTD Tdap 10/24/18Ge t COVID 19 vaccine, follow all CDC guidelines , declined 07/26/2024 Get shingrix vaccine RTC in 12 months as per her wishesDo labsER if worseShe did verbalize her understand ing of the above Dysphagia 64501848 R13.1 0 OV 11/18/2020 :S/p EGD 10/04/2020 : Unremarkab le, but it was dilated Dr Strauss OV 07/26/2024 : Referred to Dr Strauss Obesity 827282247 E66.9 Does not want any referral to gastric surgeonNot on any medsHas seen Dr Aguilar, was told she has had impaired insulin level, she is now fasting and has lost weight too Moderate r ecurrent major depression 20423759 F33.1 Does wellOn lexapro 10mg daily, wants to stop, advised to wean off 12/01/2023 Not suicidal or homicidalD oes not want to see psychiatry Heart murmur 86034511 R0 1.1 ECHO 07/05/18: Trace TR, stage 1 diastolic dysfunctio nDoes wellNo complaints at this timeIs to see Dr Delgado [facility] 08/07/2024 , as she was in the ER at [facility] Hyperlipidemia 59091307 E78.5 Not on pravastati n 40mg dailyOn repatha 140mg/ml SC [address] [facility] Liver enzy mes level above reference range 920430309 R74.01 LFTs WNL 07/05/2024 Get US liver Obstructiv e sleep apnea syndrome 12424324 G47.33 Home sleep study 09/02/2021 : Severe sleep apnea, done by Dr Chavis CPAP, referred to pulmonary Eczema 48928846 L30.9 On clobetasol as needed Microscopic hematuria 19 4242361 R31.29 Noted to have R LQ pain, s/p CT A/P, did see Dr GuevaraUA: 07/01/2022 : +ve blood, trace leukReferr ed to urology Dr Jarvis Gynecologi c examination 42625960 Z01.419 Screening for osteoporosis 872819117 Z13.820 Adult heal th examination 117680983 Z00.00 Z00.01 Hyperinsulinism 42067075 E16.1 She wants to check this test yearly as per her history was told to do so by Dr Aguilar Administra tion of influenza vaccine 60860850 Z23 [id number] Regina Pena NP [facility] Pulmonolo [facility] [place] [address] [facility] [address] [place] [address] 08/01/2024 15:29:51 08/29/2024 16:17:13 Obstructive sleep apnea syndrome 12996831 G47.33 obstructiv e sleep apnea syndromeHo ut study 09/03/21 with AHI 31.1New machine 07/2022-wi ll have IV resp care contact pt about machine-AP AP setting 5-15 cm [id number] I-0.4Press ure average 5.8, high of 7.2Her sleep apnea is well correctedD iscussed reportable signs and symptomsFo llow with PCM for labsAdvise d good sleep habits and patterns:- Set a goal for at least 7 to 8 hours of sleep time per day.-Use the bed mainly for sleep and to go to bed only when tired.If unable to fall asleep after 30 minutes, she should get out of bed but should not engage in any activity that requires sustained mental alertness. -Maintain a regular bedtime and wake-up time even on weekends or days off of work.-Avoi d excessive naps during the daytime. If a nap is necessary, limit it to no more than 30 minutes.-M inimize environmen maya noise, bright lights, and extremes in bedroom temperatur e.-Avoid alcohol, caffeinate d beverages, and nicotine products for at least 6 hours prior to bedtime.-A void strenuous exercise and large meals for at least 4 hours prior to bedtime. Body mass index 30+ - obesity 299593535 Z68.31 Encourage healthy diet and exercise to improve weightdisc ussed weight effect on sleep and sleep apnea Health Concerns Section Related Observation LastModified by Organization Detai ls LastModified Time None Recorded Concern Status LastModified by Organization Details LastModified Time None Recorded Advance Directives Directive N: Payers Encounter Date Sequence Insurance Name Policy Number Policy Maurer Covered Member ID Maurer Member ID Guarantor Name 02/04/2023 1 [employer] [id number] Laureen L Richards [id number] Laureen L Richards 12/01/2023 1 [employer] [id number] Laureen L Richards [id number] Laureen L Richards 07/26/2024 1 [employer] [id number] Laureen L Richards [id number] Laureen L Richards 08/01/2024 1 [employer] [id number] Laureen L Richards [id number] Laureen L Richards Notes Date Note Type Note Provider Name and Address Organization Details Recorded Time 02/04/2023 text/html 52 yo female com es in for follow up in management of hashimotos thyroiditis, impaired fasting glucose/prediabetes and familial hypercholesterolemi a. last seen in Jun at that time we continued natural insulin sensitizers she is taking her vitamins regularly, she is doing intermittent fasting. She takes her berberine for dinner and lunch / twice daily. Takes her vitamin E for hot flashes and vitamin D in winter. She is also taking an herbal complex- from a functional doctor; helps with insulin resistance and B12/K and magnesium. Her highest insulin was 49 uU/ml and now down to 12 uU/mL. She has been on repatha every 3 weeks - she is tolerating well, no swelling or side effects from repatha. She could not tolerate statin therapy at all- does have some small aches and pains. She did trial on phentermine in the past and felt off and did not like the way she felt in the past-trialed for 3 months. labs from 10/13/22:glucose 96 mg/dLCr normalLFT normalvit D 87 ng/mL155/103/69/67a 1c 5.5% insulin 12.9 uU/mlFt3 of 3.1 pg/mLTSH of 1.560 uIU/mlFT4 of 1.14 ng/dLB12/folate normalTPO neg Cecilio Aguilar MD [address] [facility], [place], [address], [place] [facility] 02/04/2023 19:54:29 12/01/2023 text/html Here to thomas De Oliveira PMD Dr Davison [facility]x:[facility] family and surgical historyDoing well at this timeShe would like to get a prescription for lexapro, she does not want the generic as she feels that this does not work as well OV 07/13/18:Here for her routine aptShe has done labs on 06/13/18 OV 10/24/18:Here for routine aptShe is here with her sonNo recent labsShe would like to discuss her BRITTANI OV 04/18/19:Here for her routine aptShe feels Quin did do the labsShe also has had R leg chigger bite a week ago, still some redness OV 10/23/2019:Here for her routine aptShe did do the labsShe feels great has been dieting and has lost weightShe has not yet done her mammogram or PAP as her old OB has quit OV 07/15/2020:Here for her routine aptShe is here with her motherShe did do the labsShe is eager to get on a weight loss regimen and would like to discuss 'pills' for thisShe did do her OB apt with Sofiya Salcedo NPOV 08/15/2020:Here for her weight loss medicationShe states that she is doing well and has tolerated the medication Quin is eager to continue and to lose weightShe does have another complaint of dysphagia, she states that she does have heart burnShe can swallow food and water but feels that it is 'stuck' in the mid chest area, no N/V or abdominal painOV 09/16/2020:Here for her phentermine renewalShe has felt Quin has no side effects from this OV 11/18/2020:Here for her routine aptShe feels Quin did not do the labsShe did do the EGD and feels that this did help but still feels a lump in the throat OV 04/30/2021:Here for her preventive examShe is doing Quin did do the labs OV 07/01/2022:Here for her f/u and adult wellness visit, she is doing well, she did the labs on 05/20/2022, she did see Dr Aguilar and now is on metformin, she states that she did cut back on all the processed foods and carbs and has lost almost 50 poundsShe wants to get a UA to see as in the past she has noted some blood in the urine OV 12/01/2023: Here for her f/u apt, she has missed her apts in the past Deborah Walsh MD [address] [facility], [place], [address], [place] [facility] [employer] 12/01/2023 16:28:51 07/26/2024 text/html Here to thomas De Oliveira PMD Dr Davison [facility] social family and surgical historyDoing well at this timeShe would like to get a prescription for lexapro, she does not want the generic as she feels that this does not work as well OV 07/13/18:Here for her routine aptShe has done labs on 06/13/18 OV 10/24/18:Here for routine aptShe is here with her sonNo recent labsShe would like to discuss her BRITTANI OV 04/18/19:Here for her routine aptShe feels Quin did do the labsShe also has had R leg chigger bite a week ago, still some redness OV 10/23/2019:Here for her routine aptShe did do the labsShe feels great has been dieting and has lost weightShe has not yet done her mammogram or PAP as her old OB has quit OV 07/15/2020:Here for her routine aptShe is here with her motherShe did do the labsShla is eager to get on a weight loss regimen and would like to discuss 'pills' for thisShe did do her OB apt with Sofiya Salcedo NPOV 08/15/2020:Here for her weight loss medicationShe states that she is doing well and has tolerated the medication wellShe is eager to continue and to lose weightShe does have another complaint of dysphagia, she states that she does have heart burnShe can swallow food and water but feels that it is 'stuck' in the mid chest area, no N/V or abdominal painOV 09/16/2020:Here for her phentermine renewalShe has felt Quin has no side effects from this OV 11/18/2020:Here for her routine aptShe feels Quin did not do the labsShe did do the EGD and feels that this did help but still feels a lump in the throat OV 04/30/2021:Here for her preventive examStheresa is doing Quin did do the labs OV 07/01/2022:Here for her f/u and adult wellness visit, she is doing well, she did the labs on 05/20/2022, she did see Dr Aguilar and now is on metformin, she states that she did cut back on all the processed foods and carbs and has lost almost 50 poundsShe wants to get a UA to see as in the past she has noted some blood in the urine OV 12/01/2023: Here for her f/u apt, she has missed her apts in the past OV 07/26/2024: Here for her f/u apt, she feels well, she did do the labs Deborah Walsh MD [address], [place], [address], [employer] 07/26/2024 19:30:33 08/01/2024 text/html CPAP F/UReported bypatient.CPAPPatie nt is using CPAP and estimates 6 hours of PAP use nightly.; No problems with CPAP; mask does not leak; no trouble with sleep initiation; no problems with sleep maintenance; does not remove CPAP mask during the night; does not wake up in the middle of the night with dry mouth; no snoring through the mask; no aerophagia; no abdominal discomfort; no skin irritation; no ear pain; no ear pressure; no nasal congestion; sleep related symptoms have ; wakes up rested; no excessive daytime sleepiness; no headache; no memory loss;Problems with CPAP;wakes up in the middle of the night with dry mouthNotes:has had issues since getting machine with humidifier not working, noises from machine Regina Pena NP [address], [place], [address], [facility] 08/01/2024 16:16:06 OBGyn Episode No OBEpisode recorded.
[2024-10-26 09:51] VITALS: BP 136/79; PULSE 72; RESP 18; TEMP 36; O2SAT 100
--- NOTE | 2024-10-26 09:51 | WPDANESEPPF ---
Anes - Initial Pre Proc Eval Procedure: Operation Date: 10/26/24 11:00 Proposed Procedures p Esophagogastroduodenoscopy - Souleymane Nazario MD Date/Time: 10/26/24 09:51 Surgeon: Souleymane Nazario MD Pre Op Diagnosis: dysphagia Patient Data Age: 54 Gender: F Height: 1.65 m Weight: 97 kg Allergies Allergy/AdvReac Type Severity Reaction Status Date / Time No Known Allergies Allergy Mild Verified 10/26/24 09:49 Home Medications ?Medication ?Instructions ?Recorded ?Confirmed ?Type escitalopram oxalate 10 mg tablet 10 mg PO DAILY 09/20/20 10/11/24 History cyanocobalamin (vitamin B-12) 1,000 mcg subcut MONTHLY 06/15/22 10/11/24 History 1,000 mcg/mL injection solution evolocumab 140 mg/mL subcutaneous 140 mg subcut [id number] 06/15/22 10/11/24 History pen injector (Carla Amaral) metformin 500 mg tablet 500 mg PO DAILY 06/15/22 10/11/24 History Biocel Salts 1 dose PO DAILY 06/22/22 10/11/24 History Spectra-Lite 1 dose PO DAILY 06/22/22 10/11/24 History berberine-herbal comb no.18 capsule 1 cap PO BIDWMEAL 06/22/22 10/26/24 History magnesium carb,citrate,oxide 300 mg PO BIDWM 06/22/22 10/26/24 History (Magnesium Complex) acetaminophen 500 mg capsule 1,000 mg (2 x 500 mg) PO Q6H PRN 07/07/24 10/11/24 Rx pain #20 caps ibuprofen 600 mg tablet 600 mg PO TID PRN pain #20 tabs 07/07/24 10/11/24 Rx Patient hx anesthesia problems: none Family hx anesthesia problems: none Results Review: All pre-operative results and documents have been reviewed as part of the pre-operative evaluation. 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 BMI 35, BRITTANI on CPAP, ex smoker. Informed Consent: The patient's anesthetic plan and its attendant risks and benefits were discussed with the patient/family/POA. Questions were solicited and answers provided to the satisfaction of the patient/family/POA.
--- NOTE | 2024-10-26 09:54 | SUR.PREOP ---
DR LIZAMA MADE AWARE OF PT'S SIP OF WATER AT 0920, DR SEEING AND SPEAKING WITH PT, NO NEW ORDERS.
[2024-10-26] MEDS: LACTATED RINGERS 1,000 ML 150 ML IV CONT (09:56)
--- NOTE | 2024-10-26 10:13 | PM.HPGS ---
History of Present Illness History of Present Illness Consent: Risks, benefits, and alternatives have been discussed and questions answered. Patient agrees to proceed with procedure. Chief complaint: dysphagia Narrative: Laureen Simmons is a 54 year old female with sensation of gas trapped in luq and bloating, sometimes gas-x helps, she is not taking ppi. Also noted difficulty swallowing pills (when had EGD 2020 dilated empirically with Albaro and helped until now) Review of Systems Review of Systems: All systems reviewed & are unremarkable except as noted in HPI and below PMFSH Past Medical History Medical History (Updated 10/26/24 @ 10:14 by Souleymane Nazario MD) Chronic LUQ pain Screening mammogram for breast cancer 07/05/24 Constipation Obstructive sleep apnea Depression Hyperlipidemia Family History Family History Mother History of heart artery stent Social History Social History Smoking packs per day: 1 Smoking cigarettes per day: 20.0 Years smoked: 20 Smoking pack-years: 20.00 Smoking status: Former smoker Tobacco type: cigarettes Alcohol intake: current Substance use: never Substance use type: does not use Living arrangements: with family Occupation/Education: occupation 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 Spiritual care concerns: No Meds Home Medications and Allergies Home Medications ?Medication ?Instructions ?Recorded ?Confirmed ?Type escitalopram oxalate 10 mg tablet 10 mg PO DAILY 09/20/20 10/11/24 History cyanocobalamin (vitamin B-12) 1,000 mcg subcut MONTHLY 06/15/22 10/11/24 History 1,000 mcg/mL injection solution evolocumab 140 mg/mL subcutaneous 140 mg subcut [id number] 06/15/22 10/26/24 History pen injector (Carla Amaral) metformin 500 mg tablet 500 mg PO DAILY 06/15/22 10/11/24 History Biocel Salts 1 dose PO DAILY 06/22/22 10/11/24 History Spectra-Lite 1 dose PO DAILY 06/22/22 10/11/24 History berberine-herbal comb no.18 capsule 1 cap PO BIDWMEAL 06/22/22 10/26/24 History magnesium carb,citrate,oxide 300 mg PO BIDWM 06/22/22 10/26/24 History (Magnesium Complex) acetaminophen 500 mg capsule 1,000 mg (2 x 500 mg) PO Q6H PRN 07/07/24 10/11/24 Rx pain #20 caps ibuprofen 600 mg tablet 600 mg PO TID PRN pain #20 tabs 07/07/24 10/11/24 Rx Allergies Allergy/AdvReac Type Severity Reaction Status Date / Time No Known Allergies Allergy Mild Verified 10/26/24 09:49 Vital Signs Vital Signs - 24 hr 10/26/24 09:51 Temperature 96.8 F L Pulse Rate 72 Respiratory Rate 18 Blood Pressure 136/79 Pulse Oximetry 100 Oxygen Delivery Room Air Exam Const: General: comfortable and no acute distress HENMT: Face/Nose/Sinus: Normal nares present Eyes: General: appearance normal, both eyes and all related structures Neck: Neck: no JVD Resp: Auscultation: clear to auscultation bilaterally Cardio: Rate: regular rate Rhythm: regular rhythm GI: Inspection: non-distended GI Palp: Yes Soft to palpation Skin: General skin exam: normal color Neuro: General: gait normal Speech: normal speech Extrem: General: normal to inspection Psych: Mental Status: mental status grossly normal Assessment and Plan Assessment and plan (1) Chronic LUQ pain: Code(s): R10.12 - Left upper quadrant pain; G89.29 - Other chronic pain Status: Acute Assessment and Plan: egd with bx (2) Dysphagia: Code(s): R13.10 - Dysphagia, unspecified Status: Acute Assessment and Plan: consider empiric dilation again
[2024-10-26 10:26] VITALS: BP 118/74; PULSE 66; RESP 18; O2SAT 94
[2024-10-26 10:36] VITALS: BP 118/71; PULSE 66; RESP 18; O2SAT 98
[2024-10-26 10:46] VITALS: BP 122/74; PULSE 60; RESP 18; O2SAT 99
== END 2024-10-26 10:56 | disposition home or self-care (01) ==
PROVIDERS: PCP Internal Medicine; Referring Provider Internal Medicine; Visit Provider Internal Medicine Gastroenterology
PROC: 0DJ08ZZ Inspection of Upper Intestinal Tract, Via Natural or Artificial Opening Endoscopic (ICD-10-PCS; CPT 43239; principal; 2024-10-26 11:00)
DX: R10.12 Left upper quadrant pain (principal); R13.10 Dysphagia, unspecified; G89.29 Other chronic pain; Z87.891 Personal history of nicotine dependence; E66.9 Obesity, unspecified; Z68.31 Body mass index [BMI] 31.0-31.9, adult
CPT/HCPCS: 43239; 43450; 88305; J2003; J2704; J7120